=== PATIENT | male | born 1945 | race Caucasian/White ===

== ENCOUNTER 2021-09-21 16:53 | Emergency (ER) | payer BC, MEDICARE ==
[~2021-09-21] VITALS: Ht 180.3 cm; Wt 119.1 kg
[~2021-09-21 16:53] MED LIST: ALPR-624 PO; ASCO500C18 PO; ASPI-845 PO; ATOR40TA PO; BUPR150T8 PO; BUS15T PO; CARV3.12 PO; CLON-527 PO; FLO0.4C PO; FLUO20CA39 PO; FOLATE PO; FURO40TA4 PO; GABA300C PO; GLIM4TAB7 PO; LEVO175T2 PO; LIOT25TA6 PO; LOSA50TA3 PO; METF500T PO; NIA500ERT PO; NITR0.4T SL; OMEP20TA23 PO; POTA-207 PO; QUET-1 PO; RISP1TAB13 PO; SAW160CA3; iohexol 350MG/ML 100ml bottle IV ONE
[2021-09-21 17:27] LABS: BASOPHILS % (AUTO) 0.3 % (0-1); EOSINOPHILS # (AUTO) 0.1 X10'3 (0-0.9); EOSINOPHILS % (AUTO) 1.3 % (0-6); HEMATOCRIT 38.3 % (42.0-52.0); HEMOGLOBIN 13.2 g/dl (14.0-17.9); LYMPHOCYTES # (AUTO) 0.8 X10'3 (1.1-4.8); LYMPHOCYTES % (AUTO) 8.6 % (21-51); MEAN CORPUSCULAR HEMOGLOBIN 30.3 PG (27.0-31.0); MEAN CORPUSCULAR HGB CONC 34.5 g/dL (33.0-36.5); MEAN CORPUSCULAR VOLUME 87.9 FL (78-98); MEAN PLATELET VOLUME 7.7 FL (7.4-10.4); MONOCYTES # (AUTO) 0.7 X10'3 (0-0.9); MONOCYTES % (AUTO) 7.5 % (2-12); NEUTROPHILS # (AUTO) 7.6 X10'3 (1.8-7.7); NEUTROPHILS % (AUTO) 82.3 % (42-75); PLATELET COUNT 287 X10'3 (140-440); RED BLOOD COUNT 4.36 X10'6 (4.70-6.10); RED CELL DISTRIBUTION WIDTH 13.1 % (11.5-14.5); WHITE BLOOD COUNT 9.2 X10'3 (4.5-11.0)
[2021-09-21 17:36] LABS: ALANINE AMINOTRANSFERASE 52 U/L (12-78); ALBUMIN 3.3 G/DL (3.4-5.0); ALBUMIN/GLOBULIN RATIO 0.8 (1.1-1.5); ALKALINE PHOSPHATASE 65 IU/L (46-116); ANION GAP 14 (8-16); ASPARTATE AMINO TRANSFERASE 53 U/L (10-37); BILIRUBIN,TOTAL 0.5 MG/DL (0.1-1.0); BLOOD UREA NITROGEN 30 MG/DL (7-18); BUN/CREATININE RATIO 23.1 (5.4-32.0); CALCIUM 9.4 MG/DL (8.5-10.1); CHLORIDE 102 MMOL/L (99-107); GLUCOSE 134 MG/DL (70-104); POTASSIUM 4.6 MMOL/L (3.5-5.1); SODIUM 140 MMOL/L (135-145); TOTAL CARBON DIOXIDE 24.3 MMOL/L (24-32); TOTAL PROTEIN 7.7 G/DL (6.4-8.2); eGFR 54 ML/MIN
[2021-09-21 17:55] LABS: ETHANOL < 0.010 GM/DL (0.0-0.010)
[2021-09-21 19:07] LABS: CLARITY,URINE CLEAR (Clear); COLOR,URINE YELLOW (Yellow); GLUCOSE, URINE NEGATIVE (Neg); KETONES,URINE 15 mg/dl (Neg); LEUKOCYTE ESTERASE ,URINE NEGATIVE (Neg); NITRITES, URINE NEGATIVE (Neg); OCCULT BLOOD,URINE NEGATIVE (Neg); PROTEIN,URINE NEGATIVE (Neg); UROBILINOGEN,URINE 0.2 E.U/dL (0.2-1.0)
[2021-09-21 19:08] LABS: UA COLLECTION TYPE NON-SPECIFIED
[2021-09-21 19:17] LABS: URINE AMPHETAMINE SCREEN NEGATIVE (Neg); URINE BARBITUATE SCREEN NEGATIVE (Neg); URINE BENZODIAZEPINES SCREEN POSITIVE (Neg); URINE CANNABINOID SCREEN NEGATIVE (Neg); URINE COCAINE SCREEN NEGATIVE (Neg); URINE METHADONE SCREEN NEGATIVE (Neg); URINE OPIATE SCREEN POSITIVE (Neg); URINE PHENCYCLIDINE SCREEN NEGATIVE (Neg)
[2021-09-21] MEDS ORDERED: temazepam 15mg capsule PO PRN (21:00)
[2021-09-21 23:09] VITALS: BP 158/52
[2021-09-21] MEDS ORDERED: glucagon, human recombinant 1mg kit SUBCUT PRN (23:25)
[2021-09-21] MEDS ORDERED: MESSAGE TO PHARMACY PO ONE (23:25)
[2021-09-21] MEDS ORDERED: insulin Lispro (HumaLOG) vial - multi-dose SQ SCH (23:25)
[2021-09-21] MEDS ORDERED: dextrose 50%-water 50ml dispensing syringe IV PRN ×2 (23:25)
[2021-09-21] MEDS ORDERED: DEXTROSE 15 GM of carb/4 tabs (each vial/BOTTLE has 4 tablets) PO PRN ×2 (23:25)
[2021-09-21] MEDS ORDERED: morphine 2 MG/ML inj. syringe IV PRN ×2 (23:45)
[2021-09-21] MEDS ORDERED: ondansetron/PF 4mg/2ml inj IV PRN (23:45)
[2021-09-21] MEDS ORDERED: bisacodyl 10mg suppository rectal RC PRN (23:45)
[2021-09-21] MEDS ORDERED: ondansetron 4mg rapidly disintigrating tab PO PRN (23:45)
[2021-09-21] MEDS ORDERED: HYDROcodone/acetaminophen 10/325mg tab PO PRN (23:45)
[2021-09-21] MEDS ORDERED: acetaminophen 325mg tablet PO PRN ×2 (23:45)
[2021-09-21] MEDS ORDERED: magnesium hydroxide 30ml (MOM) UD suspension PO PRN (23:45)
[2021-09-21] MEDS ORDERED: acetaminophen 650mg rectal suppository RC PRN (23:45)
[2021-09-21] MEDS ORDERED: HYDROmorphone inj. 0.5 MG/0.5 ML DISP.SYRIN IV PRN (23:45)
[2021-09-21] MEDS ORDERED: HYDROcodone/acetaminophen 5mg/325mg tablet PO PRN (23:45)
[2021-09-21] MEDS ORDERED: normal saline 1000ml 1,000 ML IV SCH (23:45)
[2021-09-21] MEDS ORDERED: diphenhydrAMINE 25mg capsule PO PRN (23:45)
[2021-09-21] MEDS ORDERED: diphenhydrAMINE 50 mg/ml inj IV PRN (23:45)
[2021-09-21] MEDS ORDERED: mag hydrox/Alum hydrox/simeth 30ml oral suspension PO PRN (23:45)
[2021-09-21 23:57] LABS: HEMOGLOBIN A1C 6.1 % (4.5-6.2)
[2021-09-22] MEDS ORDERED: docusate sod 100mg capsule PO SCH (08:00)
[2021-09-22] MEDS ORDERED: heparin, porcine 5000 units/ml vial SQ SCH (08:00)
[2021-09-22] MEDS ORDERED: insulin glargine (Lantus) pen - multi-dose SQ SCH (21:00)
== END 2021-09-21 23:11 | disposition left against medical advice (07) ==
LOC: ER 16:54
DX: R55 Syncope and collapse (principal); R20.0 Anesthesia of skin; E11.9 Type 2 diabetes mellitus without complications; G47.33 Obstructive sleep apnea (adult) (pediatric); I10 Essential (primary) hypertension; I25.10 Atherosclerotic heart disease of native coronary artery without angina pectoris; G89.29 Other chronic pain; E78.00 Pure hypercholesterolemia, unspecified; E03.9 Hypothyroidism, unspecified; K21.9 Gastro-esophageal reflux disease without esophagitis; N40.0 Benign prostatic hyperplasia without lower urinary tract symptoms; Z95.5 Presence of coronary angioplasty implant and graft; Z88.8 Allergy status to other drugs, medicaments and biological substances; Z79.899 Other long term (current) drug therapy
CPT/HCPCS: 36415; 70450; 70496; 70498; 71045; 80053; 80305; 80320; 81003; 83036; 83880; 84484; 85025; 99285; J3490; Q9967; J1815

== ENCOUNTER 2023-08-11 12:36 | Emergency (ER) | payer BC ==
[~2023-08-11] VITALS: Ht 180.3 cm; Wt 102.3 kg
[~2023-08-11 12:36] MED LIST changes: +LOSA-416 PO; -LOSA50TA3 PO; -iohexol 350MG/ML 100ml bottle IV ONE
[2023-08-11 13:13] VITALS: TEMP 98.1
[2023-08-11 13:43] LABS: BASOPHILS % (AUTO) 0.2 % (0-1); EOSINOPHILS # (AUTO) 0.1 X10'3 (0-0.9); EOSINOPHILS % (AUTO) 0.6 % (0-6); HEMATOCRIT 36.6 % (42.0-52.0); HEMOGLOBIN 12.5 g/dl (14.0-17.9); LYMPHOCYTES # (AUTO) 0.7 X10'3 (1.1-4.8); LYMPHOCYTES % (AUTO) 6.6 % (21-51); MEAN CORPUSCULAR HEMOGLOBIN 30.8 PG (27.0-31.0); MEAN CORPUSCULAR HGB CONC 34.2 g/dL (33.0-36.5); MEAN CORPUSCULAR VOLUME 90.1 FL (78-98); MEAN PLATELET VOLUME 7.5 FL (7.4-10.4); MONOCYTES # (AUTO) 0.6 X10'3 (0-0.9); MONOCYTES % (AUTO) 5.9 % (2-12); NEUTROPHILS # (AUTO) 8.7 X10'3 (1.8-7.7); NEUTROPHILS % (AUTO) 86.7 % (42-75); PLATELET COUNT 212 X10'3 (140-440); RED BLOOD COUNT 4.06 X10'6 (4.70-6.10); WHITE BLOOD COUNT 10.1 X10'3 (4.5-11.0)
[2023-08-11] MEDS ORDERED: FLUO40CA PO (13:45)
[2023-08-11] MEDS ORDERED: ALPR1TAB7 PO (13:45)
[2023-08-11] MEDS ORDERED: ATOR40TA72 PO (13:45)
[2023-08-11 13:57] LABS: ALBUMIN 2.7 G/DL (3.4-5.0); ANION GAP 10 (8-16); BLOOD UREA NITROGEN 14 MG/DL (7-18); BUN/CREATININE RATIO 17.5 (10.0-20.0); CALCIUM 7.5 MG/DL (8.5-10.1); CHLORIDE 101 MMOL/L (99-107); GLUCOSE 122 MG/DL (70-104); POTASSIUM 3.9 MMOL/L (3.5-5.1); PRO BRAIN NATRIURETIC PEPTIDE 322 PG/ML (0-450); SODIUM 132 MMOL/L (135-145); TOTAL CARBON DIOXIDE 21.4 MMOL/L (24-32); eCRCL 82 ML/MIN; eGFR > 90 ML/MIN
[2023-08-11] MEDS ORDERED: NITR0.4T48 SL (14:04)
[2023-08-11] MEDS ORDERED: FURO20TA4 PO (14:04)
[2023-08-11] MEDS ORDERED: LOSA25TA41 PO (14:04)
[2023-08-11] MEDS: ketorolac tromethamine 15mg/ml inj. IM ONE (14:06)
[2023-08-11] MEDS ORDERED: FLO0.4C PO (14:24)
[2023-08-11] MEDS ORDERED: ZINC PO (14:24)
[2023-08-11] MEDS ORDERED: RISP-32 PO (14:24)
[2023-08-11] MEDS ORDERED: VITAMIN D PO (14:24)
[2023-08-11] MEDS ORDERED: MULT-1085 PO (14:24)
[2023-08-11] MEDS ORDERED: OMEP40CA21 PO (14:24)
[2023-08-11] MEDS ORDERED: DIF150T PO (14:24)
[2023-08-11] MEDS ORDERED: POTA-366 PO (14:24)
[2023-08-11] MEDS ORDERED: MAGNESIUM PO (14:24)
[2023-08-11] MEDS: HYDROmorphone inj. 0.5 MG/0.5 ML DISP.SYRIN IV ONE (15:00)
[2023-08-11] MEDS ORDERED: TRAM50TA2 PO ×2 (15:46→15:47)
[2023-08-11] MEDS ORDERED: OXYC-150 PO ×2 (15:55→15:58)
[2023-08-11 16:08] VITALS: BP 120/53; PULSE 80; RESP 16; O2SAT 98
== END 2023-08-11 16:50 | disposition home or self-care (01) ==
LOC: ER 12:37
DX: S42.392A Other fracture of shaft of left humerus, initial encounter for closed fracture (principal); E11.9 Type 2 diabetes mellitus without complications; F31.9 Bipolar disorder, unspecified; Z98.890 Other specified postprocedural states; Z79.82 Long term (current) use of aspirin; Z79.899 Other long term (current) drug therapy; Z79.84 Long term (current) use of oral hypoglycemic drugs; W18.39XA Other fall on same level, initial encounter; Y93.89 Activity, other specified; Y92.89 Other specified places as the place of occurrence of the external cause; Y99.8 Other external cause status; Z98.61 Coronary angioplasty status
CPT/HCPCS: 36415; 71045; 73020; 80048; 82948; 83880; 84484; 85025; 93005; 96372; 96374; 99285; J1170; J1885; A6446; A6449

== ENCOUNTER 2024-06-16 04:55 | Inpatient (IN) | payer BC, MEDICARE ==
[2024-06-16] VITALS (12 sets, daily range): BP systolic 124–140; BP diastolic 46–64; PULSE 72–86; RESP 16–28; TEMP 97.6–97.7; O2SAT 76–98
[~2024-06-16] VITALS: Ht 180.3 cm; Wt 109.5 kg
[~2024-06-16 04:55] MED LIST changes: -ALPR-624 PO; +ALPR1TAB7 PO; -ATOR40TA PO; +ATOR40TA72 PO; -BUS15T PO; +DIF150T PO; -FLO0.4C PO; +FLUO40CA PO; -FOLATE PO; +FURO20TA4 PO; -FURO40TA4 PO; -GLIM4TAB7 PO; -LOSA-416 PO; +LOSA25TA41 PO; +MAGNESIUM PO; +MULT-1085 PO; -NIA500ERT PO; -NITR0.4T SL; +NITR0.4T48 SL; -OMEP20TA23 PO; +OMEP40CA21 PO; +OXYC-150 PO; -POTA-207 PO; +POTA-366 PO; +RISP-32 PO; -RISP1TAB13 PO; -SAW160CA3; +TAMS-55 PO; +VITAMIN D PO; +ZINC PO
--- NOTE | 2024-06-16 05:06 | ELECTROCARDIOGRAPH REPORT ---
[facility] Test Date: 2024-06-16 Test Time: 05:04:11 Pat Name: ARPAN HUSAIN Department: [facility] Patient ID: [facility]-[id number] Room: [place] [address] Gender: M Client Care Representative: DESTINY : 1945 Requested By: LISHA WOMACK Order Number: [id number] Reading MD: Dr. Saroj Gomez Measurements Intervals [place] Rate: 90 P: 68 LA: 135 QRS: 52 QRSD: 117 T: -13 QT: 389 QTc: 476 Interpretive Statements Atrial-paced complexes Incomplete left bundle branch block Borderline low voltage, extremity leads Minimal ST elevation, lateral leads Electronically Signed On 06-16-2024 19:02:[address] Saroj Gomez Please click the below link to view image of tracing.
--- NOTE | 2024-06-16 05:07 | Physician Documentation ---
History of Present Illness ~ Stated Complaint: SOB Time Seen by MD: 05:06 Primary Medical Doctor: [facility] Source: patient, EMS HPI 78-year-old male, history of IN/CABG, who presents with shortness of breath and respiratory distress Per EMS, the patient arrives from home. He was found to have oxygen saturations were on 70%, with respiratory distress. He was placed on oxygen with partial improvement. The patient tells me he has had a cough for about the last 4 5 days. He has be en having chest pain for the past day or 2. He reports the pain is in his central chest. It does not seem pleuritic. He was not having a productive cough. No definite fevers. No abdominal pain, nausea vomiting or diarrhea. He does not know if his legs are swollen. Does have a history of heart attacks in the past and states this kind of feels similar. He denies any other history of lung problems, asthma or COPD. He does have a tobacco history. Medication Reconciliation Allergies: Coded Allergies: No Known Allergies (Unverified , 09/15/15) Scheduled Ascorbic Acid (Vitamin C), 2 CAP PO DAILY, (Reported) Aspirin* (Aspirin EC*), 2 TAB PO DAILY, (Reported) Atorvastatin Calcium (Atorvastatin Calcium), 1 TAB PO HS, (Reported) Bupropion Hcl SR* (Wellbutrin SR*), 1 TAB PO DAILY, (Reported) Carvedilol (Coreg), 1 TAB PO HS, (Reported) Clonazepam* (Klonopin*), 0.5 MG PO HS, (Reported) Fluconazole* (Diflucan*), 1 TAB PO Q7D, (Reported) Fluoxetine Hcl (Fluoxetine Hcl), 2 CAP PO QAM, (Reported) Fluoxetine Hcl* (Prozac*), 2 CAP PO QAM, (Reported) Furosemide (Furosemide), 10 MG PO QAM, (Reported) Gabapentin (Neurontin), 2 CAP PO DAILY, (Reported) Gabapentin (Neurontin), 3 CAP PO HS, (Reported) Levothyroxine* (Synthroid*), 1 TAB PO DAILY, (Reported) Liothyronine Sodium (Cytomel), 5 MCG PO QAM, (Reported) Losartan Potassium (Losartan Potassium), 1 TAB PO BID, (Reported) Metformin Hcl* (Glucophage*), 2 TAB PO BIDAC, (Reported) Omeprazole (Prilosec), 1 CAP PO DAILY, (Reported) Potassium Chloride (Potassium Chloride), 0.5 TAB PO QAM, (Reported) Quetiapine Fumarate* (Seroquel*), 1.5 TAB PO HS, (Reported) Risperidone (Risperidone), 1 TAB PO HS, (Reported) Tamsulosin Hcl* (Flomax*), 1 TAB PO BID, (Reported) [Magnesium], 400 MG PO DAILY, (Reported) [Vitamin D], 1,000 MG PO BID, (Reported) [Zinc], 100 MG PO DAILY, (Reported) Scheduled PRN Alprazolam (Alprazolam), 2 TAB PO HS PRN for for anxiety/agitation, (Reported) Nitroglycerin (Nitroglycerin), 1-3 TAB SL for pain, (Reported) Oxycodone HCl/Acetaminophen (Percocet 10-325 mg Tablet), 1 TAB PO TID PRN PRN for pain Miscellaneous Medications Multivitamin (Multi Vitamin Daily), 1 EACH PO, (Reported) Past Medical History Past Medical History: Coronary Artery Disease, Hypertension, Diabetes, Bipolar Past Surgical History: angioplasty, orthopedic surgeries Other Past Surgical History: amputation Patient History: (CAD) Coronary arteriosclerosis FATHER, , Age: 83, Cause: Kidney failure (DM Type 2) Diabetes mellitus type 2 FATHER, , Age: 83, Cause: Kidney failure FH: colon cancer MOTHER, , Age: 89, Cause: Old age Drug Use: none Lives In: Home Review of Systems Constitutional: Denies: fever Respiratory: Reports: shortness of breath Cardiovascular: Reports: chest pain Physical Exam Physical Exam General: This is an ill-appearing older man in respiratory distress HEENT: Atraumatic, oropharynx is dry Heart: Tachycardic, appears regular Lungs: Increased work of breathing with tachypnea, respiratory rate around 40, very coarse crackly breath sounds diffusely in the left side, generally clear breath sounds in the right. Bedside ultrasound shows a small pleural effusion on the left, but not a large effusion Abdomen: Soft, nondistended, nontender all quadrants Extremities: Warm and well-perfused. Mild edema to both calves Neuro: Alert and oriented, no focal deficits Psychiatric: Anxious, cooperative with exam Progress Results/Orders Results/Orders Orders - LISHA WOMACK MD Chest,Single View (06/16/24 05:10) Monitor (06/16/24 04:56) Saline Lock (06/16/24 04:56) Oxygen (06/16/24 04:56) Hs Troponin I W Calculations (06/16/24 06:56) Hs Troponin I W Calculations (06/16/24 07:56) Culture Blood (06/16/24 04:56) Urinalysis, Cult If Indicated (06/16/24 04:56) Straight Cath For Urine Sample (06/16/24 04:56) Covid19 Binax Poc Result Entry (06/16/24 04:56) Cta Chest Pe (06/16/24 05:57) Completed Orders - LISHA WOMACK MD Chest,Single View (06/16/24 05:10) Cbc/Diff (06/16/24 04:56) PBNP (06/16/24 04:56) Electrocardiogram (06/16/24 04:56) CMP (06/16/24 04:56) Hs Troponin I W Calculations (06/16/24 04:56) Procalcitonin (06/16/24 04:56) Lacticsepsis (06/16/24 04:56) Influenza Type A&B Rapid Test (06/16/24 04:56) Ceftriaxone 2gm/D5w 50ml Bag (Rocephin 2 (06/16/24 05:30) Medications Received in ER Medications (Trade) Dose Ordered Sig/Raisa Route PRN Reason Start Time Stop Time Status Last Admin Dose Admin Ceftriaxone Sodium/Dextrose 50 ml @ 100 mls/hr ONCE ONCE IV 06/16/24 05:30 06/16/24 05:59 DC 06/16/24 05:43 100 MLS/HR Vital Signs 06/16/24 06/16/24 06/16/24 06/16/24 05:00 05:19 05:20 05:20 Temp 98.5 89.0 Pulse 89 88 Resp 19 21 16 B/P (MAP) 117/51 124/53 (76) Pulse Ox 96 98 O2 Delivery Non-Rebreather O2 Flow Rate 12.0 16 FiO2 N/A 06/16/24 06:48 Pulse 91 Resp 21 B/P (MAP) 120/59 (79) Pulse Ox 95 O2 Flow Rate 6.0 Laboratory Tests Test 06/16/24 05:06 06/16/24 05:12 06/16/24 05:13 White Blood Count 10.9 Red Blood Count 3.46 L Hemoglobin 10.9 L Hematocrit 31.3 L Mean Corpuscular Volume 90.6 Mean Corpuscular Hemoglobin 31.5 H Mean Corpuscular Hemoglobin Concent 34.8 Red Cell Distribution Width 12.7 Platelet Count 195 Mean Platelet Volume 8.0 Neutrophils (%) (Auto) 88.1 H Lymphocytes (%) (Auto) 4.6 L Monocytes (%) (Auto) 6.3 Eosinophils (%) (Auto) 0.3 Basophils (%) (Auto) 0.7 Neutrophils # (Auto) 9.6 H Lymphocytes # (Auto) 0.5 L Monocytes # (Auto) 0.7 Eosinophils # (Auto) 0.0 Basophils # (Auto) 0.1 CBC Comment Sodium Level 141 Potassium Level 4.1 Chloride Level 106 Carbon Dioxide Level 23.5 L Anion Gap 12 Blood Urea Nitrogen 23 H Creatinine 1.03 Estimated GFR/1.73 m2 70 BUN/Creatinine Ratio 22.3 H Glucose Level 180 H Lactic Acid Level 1.6 Calcium Level 8.4 L Total Bilirubin 0.6 Aspartate Amino Transf (AST/SGOT) 17 Alanine Aminotransferase (ALT/SGPT) 19 Alkaline Phosphatase 51 Troponin I High Sensitivity 59 Pro-B-Type Natriuretic Peptide 2694 H Total Protein 5.8 L Albumin 2.6 L Globulin 3.2 Albumin/Globulin Ratio 0.8 L Procalcitonin < 0.05 Chemistry Comments SARS-CoV-2 Antigen (Rapid) Negative Influenza Type A (Rapid) Negative Influenza Type B (Rapid) Negative EKG/XRAY/CT/US/VASC/MRI EKG : Additional Comment I personally interpreted the EKG and this shows: Sinus tachycardic, rate 89, QTC 467, no STEMI, nonspecific T-wave changes in the inferior lateral leads Chest X-Ray : Additional Comments I personally reviewed the x-ray, and it shows: Significant consolidation to the left lung, mild cardiomegaly with surgical changes, mild right-sided pulmonary edema without consolidation Medical Decision Making Additional Information Differential includes pneumonia, PE, dissection, ACS, CHF, sepsis, viral syndrome Assessment The patient presents with respiratory distress and hypoxia. On exam he has course breath sounds in the left. X-ray shows significant consolidation. Bedside ultrasound without large pleural effusion to drain. Blood cultures pending. He was given IV ceftriaxone. Labs then returned without significant leukocytosis. Troponin is not dangerously elevated and EKG without ischemic changes. A CT scan of the chest will be obtained to further evaluate if this is truly just pneumonia or if there is another process or PE. The patient was signed out at shift change to the oncoming ER provider, pending CT PE and admission. Departure Impression: Primary Impression: Acute hypoxic respiratory failure Additional Impression: Community acquired pneumonia Referrals: NO PRIMARY CARE PROVIDER (PCP) Critical Care Note Critical Care Note Critical Care Note The very real possibility of a deterioration of this patient's condition required the highest level of my preparedness for sudden, emergent intervention. I provided critical care services, which included medication orders, frequent reevaluations of the patient's condition and response to treatment, ordering and reviewing test results, and discussing the case with various consultants. Excludes time spent performing separately billable procedures. The critical care time associated with the care of the patient was 45 minutes in the management of hypoxic respiratory failure, sepsis Signature Scribe Signature: giancarlo Attestation: LISHA Bragg MD Jun 16, 2024 05:07
--- NOTE | 2024-06-16 05:37 | RADIOLOGY REPORT ---
EXAM: XR Chest, 1 View CLINICAL INDICATION: CP TECHNIQUE: Frontal view of the chest. COMPARISON: DI CHEST,SINGLE VIEW on DOS: 08/11/23, CHEST,SINGLE VIEW on DOS: 09/21/21 FINDINGS: LUNGS AND PLEURAL SPACES: Patchy airspace disease of the left lung field. HEART: Cardiomegaly with mild congestion. MEDIASTINUM: Unremarkable. Normal mediastinal contour. BONES/JOINTS: Unremarkable. No acute fracture. OTHER FINDINGS: . . . . IMPRESSION: 1. Patchy airspace disease of the left lung field. 2. Cardiomegaly with mild congestion.
[2024-06-16 05:40] LABS: BASOPHILS # (AUTO) 0.1 X10'3 (0-0.2); BASOPHILS % (AUTO) 0.7 % (0-1); EOSINOPHILS % (AUTO) 0.3 % (0-6); HEMATOCRIT 31.3 % (42.0-52.0); HEMOGLOBIN 10.9 g/dl (14.0-17.9); LYMPHOCYTES # (AUTO) 0.5 X10'3 (1.1-4.8); LYMPHOCYTES % (AUTO) 4.6 % (21-51); MEAN CORPUSCULAR HEMOGLOBIN 31.5 PG (27.0-31.0); MEAN CORPUSCULAR HGB CONC 34.8 g/dL (33.0-36.5); MEAN CORPUSCULAR VOLUME 90.6 FL (78-98); MONOCYTES # (AUTO) 0.7 X10'3 (0-0.9); MONOCYTES % (AUTO) 6.3 % (2-12); NEUTROPHILS # (AUTO) 9.6 X10'3 (1.8-7.7); NEUTROPHILS % (AUTO) 88.1 % (42-75); PLATELET COUNT 195 X10'3 (140-440); RED BLOOD COUNT 3.46 X10'6 (4.70-6.10); RED CELL DISTRIBUTION WIDTH 12.7 % (11.5-14.5); WHITE BLOOD COUNT 10.9 X10'3 (4.5-11.0)
[2024-06-16] MEDS: CefTRIAXone 2gm/D5W 50ml BAG 50 ML IV ONE (05:43)
[2024-06-16 05:49] LABS: ALANINE AMINOTRANSFERASE 19 U/L (12-78); ALBUMIN 2.6 G/DL (3.4-5.0); ALBUMIN/GLOBULIN RATIO 0.8 (1.1-1.5); ALKALINE PHOSPHATASE 51 IU/L (46-116); ANION GAP 12 (8-16); ASPARTATE AMINO TRANSFERASE 17 U/L (10-37); BILIRUBIN,TOTAL 0.6 MG/DL (0.1-1.0); BLOOD UREA NITROGEN 23 MG/DL (7-18); BUN/CREATININE RATIO 22.3 (10.0-20.0); CALCIUM 8.4 MG/DL (8.5-10.1); CHLORIDE 106 MMOL/L (99-107); CREATININE 1.03 MG/DL (0.60-1.10); GLUCOSE 180 MG/DL (70-104); POTASSIUM 4.1 MMOL/L (3.5-5.1); SODIUM 141 MMOL/L (135-145); TOTAL CARBON DIOXIDE 23.5 MMOL/L (24-32); TOTAL PROTEIN 5.8 G/DL (6.4-8.2); eCRCL 63 ML/MIN; eGFR 70 ML/MIN
[2024-06-16 05:57] LABS: PRO BRAIN NATRIURETIC PEPTIDE 2694 PG/ML (0-450)
[2024-06-16] MEDS ORDERED: iohexol 350MG/ML 100ml bottle IV ONE (07:14)
[2024-06-16] MEDS ORDERED: FINA5TAB11 PO (07:52)
[2024-06-16 08:33] LABS: ABG BASE EXCESS -2.6 mmol/L (-2.0-3.0); ABG HCO3 21.4 mmol/L (21.0-28.0); ABG OXYGEN SATURATION 94.6 % (94.0-98.0); ABG PCO2 (T) 34.3 mmHg (35.0-48.0); ABG PH (T) 7.413 (7.350-7.450); ABG PO2 (T) 80.2 mmHg (83.0-108.0); ALLEN'S TEST POSITIVE; FCOHb 0.4 % (0.5-1.5); FHHb 5.4 % (0.0-5.0); FLOW 5 L/min; FMetHb 0.3 % (0.0-1.5); FO2Hb 93.9 % (94.0-98.0); MODE MASK - SIMPLE; TOTAL HEMOGLOBIN 11.3 G/dl (13.5-17.5)
--- NOTE | 2024-06-16 08:47 | RADIOLOGY REPORT ---
CTA Chest with intravenous contrast INDICATION: Shortness of breath, hypoxia, pneumonia versus PE COMPARISON: None TECHNIQUE: Multidetector spiral CTA of the chest was performed of the chest with 100 cc of intravenou s contrast. PULMONARY ANGIOGRAPHY PROTOCOL was utilized using a bolus-tracking technique centered on the main pulmonary artery. Coronal and sagittal multiplanar and MIP reformats were performed. Radiation Dose : 1. Chest: CTDI volume is 24.6 mGy. Dose-length product is 784.5 mGy*cm The dose indicators for CT are the volume Computed Tomography (CT) Dose Index (CTDIvol) and the Dose Length Product (DLP), and are measured in units of mGy and mGy-cm, respectively. These indicators are not patient dose, but values generated from the CT scanner acquisition factors. The report includes radiation exposure data for exposures received during this examination. FINDINGS: Pulmonary artery: No central or lobar pulmonary embolism. Segmental branches are not well evaluated due to suboptimal enhancement. Lower neck: Normal thyroid. Lungs: Diffuse ground-glass opacification of the left upper and lower lobes. Emphysema. Central airways: Patent. Pleura: No pneumothorax. Left pleural effusion. Trace right pleural effusion Heart/Vascular Structures: The heart is enlarged. No pericardial effusion. Thoracic aorta is normal i n caliber. No aneurysm or dissection. Lymph Nodes: 2.2 cm right paratracheal lymph node. 1.1 cm left paratracheal lymph node. Enlarged sub carinal lymph node measuring 2.0 cm. Esophagus: Hiatal hernia Musculoskeletal: Status post median sternotomy. Bone anchors in the left humeral head. Multilevel tho racic spondylosis. Body wall: Unremarkable. Upper abdomen: Cholecystectomy. IMPRESSION: 1. No central pulmonary embolism. The other pulmonary branches are not evaluated due to suboptimal en hancement. 2. Left upper and lower lobe pneumonia. 3. Emphysema. 4. Mediastinal lymphadenopathy.
[2024-06-16] MEDS: methylPREDNISolone sod succ 125mg/2ml vial IV ONE (09:27)
[2024-06-16] MEDS: azithromycin/NS 500mg/250ml 250 ML IV ONE (09:28)
[2024-06-16] MEDS ORDERED: potassium Cl 20 mEq SR tablet PO PRN ×2 (11:50)
[2024-06-16] MEDS ORDERED: potassium Cl 40MEQ/1/2NS 520ml 520 ML IV PRN (11:50)
[2024-06-16] MEDS ORDERED: magnesium sulf-water 2g/50mL 50 ML IV PRN (11:50)
[2024-06-16] MEDS ORDERED: magnesium Cl slow-release 64mg tablet PO PRN (11:50)
[2024-06-16] MEDS ORDERED: morphine 2 MG/ML inj. syringe IV PRN (11:50)
[2024-06-16] MEDS ORDERED: magnesium sulf-water 4G/100mL 100 ML IV PRN (11:50)
[2024-06-16] MEDS ORDERED: acetaminophen 325mg tablet PO PRN (11:50)
[2024-06-16] MEDS: albuterol 2.5 MG/3 ML nebule NEB SCH (12:00)
[2024-06-16] MEDS ORDERED: finasteride 5mg tablet PO SCH (17:31)
[2024-06-16 17:32] LABS: HEMOGLOBIN A1C 5.5 % (4.5-6.2)
[2024-06-16] MEDS: magnesium oxide 400mg tablet PO SCH (17:46)
[2024-06-16] MEDS: buPROPion SR 150mg tablet PO SCH (17:46)
--- NOTE | 2024-06-16 18:13 | CARDIOLOGY REPORT ---
APPROVED REPORT EXAM: Comprehensive 2D, Doppler, and color-flow Echocardiogram. Patient Location: 3012 A Blood Pressure: 140/46 mmHg Heart Rate: 80 bpm Rhythm: SINUS Indications SHORTNESS OF BREATH ELEVATED PROBNP (2694) VA X2, CABG X3 2000 HYPERTENSION DIABETES MELLITUS Academic Coach: Alesia Nieto MD Previous echo: none available (after hours) 2D Dimensions RVDd 3.7 cm LA Diam5.4 cm IVSd 1.7 (0.7-1.1cm) LVDd 4.4 cm PWd 1.7 (0.7-1.1cm) IVSs 1.8 (0.8-1.2cm) LVDs 3.1 (2.5-4.0cm) PWs 1.9 (0.8-1.2cm) LVOT Diameter 2.28 (1.8-2.4cm) LVEF(%) 57.0 (>50%) Ao Asc Diam.3.97 cmFS (%) 29.7 % SV 48.8 ml CO 3.9 L/min M-Mode Dimensions Left Atrium(MM) 5.22 (2.5-4.0cm) IVSd 1.87 (0.7-1.1cm) LVDd 4.30 (4.0-5.6cm) Aortic Root 4.09 (2.2-3.7cm) PWd 1.83 (0.7-1.1cm) Aortic Cusp Exc 1.13 (1.5-2.0cm) IVSs 2.26 cm MV EPSS 1.0 (<0.5cm) LVDs 2.96 (2.0-3.8cm) FS (%) 31 % PWs 2.04 cm ESV(Teich) 33.8 ml LVEF(%) 59 (>50%) Biplane 2D LA Volumes LA ESV Index 33.06 mL/m2 Aortic Valve AoV Peak Cristobal. 389.1 cm/s AoV VTI 88.2 cm AO Peak GR. 60.6 mmHg AO Mean GR. 33 mmHg LVOT VTI 27.59 cm LVOT Peak Cristobal. 114.7 cm/s EMMETT(VTI)/BSA 1.28 cm2/m2 EMMETT (VTI) 1.28 cm2 AI P 1/2 Time 228 ms Mitral Valve MV E Velocity 87.6 cm/s MV Peak Gr. 4 mmHg MV DECEL TIME 196 ms MV A Velocity 68.2 cm/s MV PHT 52 ms E/A Ratio 1.3 MVA (PHT) 4.23 cm2 MV VMax97.8 cm/s TDI Medial E' P. V 6.64 cm/s E/Medial E' 13.2 Tricuspid Valve TR P. Velocity 250 cm/s RAP ESTIMATE 10 mmHg TR Peak Gr. 25 mmHg RVSP 35 mmHg Pulmonary Vein S1 Velocity 86.6 cm/s D2 Velocity 67.7 cm/s PVa Abmixxwa29.0 cm/s PVa Mukjugkl02 msec LEFT VENTRICLE Normal LV size and function. Mild concentric hypertrophy. LVEF is 55-60%. RIGHT VENTRICLE RV is mildly dilated in size with normal function. RVSP is estimated at 35 mmHg. ATRIA Left atrium is mildly dilated. AORTIC VALVE Probably trileaflet AV is difficult to visualize, but appears moderately sclerotic and calcified with moderate stenosis. EMMETT is measured at 1.28 cmsq. Peak / mean gradients of 61 / 33 mmHG. Peak velocit y is measured at 3.89 m/sec. Moderate to evere insufficiency. MITRAL VALVE Mild MV annular calcification without stenosis. Mild regurgitation. TRICUSPID VALVE TV appears structurally normal with trace regurgitation. PULMONIC VALVE Normal PV without stenosis, physiologic insufficiency. GREAT VESSELS Aortic root is dilated. Ascending aorta is dilated. PERICARDIUM Normal pericardium. No effusion. Other Information Study Quality: Adequate
[2024-06-16] MEDS: ALPRAZolam 0.25mg tablet PO ONE (20:25)
[2024-06-16] MEDS: atorvastatin 20mg tablet PO SCH (20:25)
[2024-06-16] MEDS: quetiapine 100mg tablet PO SCH (20:25)
[2024-06-16] MEDS: gabapentin 300mg capsule PO SCH (20:25)
[2024-06-16] MEDS: tamsulosin 0.4mg capsule PO SCH (20:26)
[2024-06-16] MEDS: heparin, porcine 5000 units/ml vial SQ SCH (20:26)
[2024-06-16] MEDS: methylPREDNISolone sod succ/PF 40mg inj. IV SCH (20:27)
[2024-06-16] MEDS: risperiDONE 0.5mg tablet PO SCH (20:49)
--- NOTE | 2024-06-16 21:20 | HISTORY AND PHYSICAL ---
History & Physical Providers to CC ~ History of Present Illness Reason for Admit\\Complaint: Shortness of breath History of Present Illness 78-year-old male, history of OH/CABG, who presents with shortness of breath and respiratory distress. Per EMS, the patient arrives from home. He was found to have oxygen saturations were on 70%, with respiratory distress. He was placed on oxygen with partial improvement. As per ER provider's note" The patient tells me he has had a cough for about the last 4 5 days. He has been having chest pain for the past day or 2. He reports the pain is in his central chest. It does not seem pleuritic. He was not having a productive cough. No definite fevers. No abdominal pain, nausea vomiting or diarrhea. He does not know if his legs are swollen." . When I evaluated the patient patient denied any chest pain to me he was on 7 L oxygen saturating 96%. On exam he has very coarse breath sounds all over his lungs. X-ray showed significant consolidation. CT chest done today which showed left upper and lower lobe pneumonia, emphysema no central pulmonary embolism. Other pulmonary branches are not evaluated due to suboptimal enhancement. Mediastinal lymphadenopathy. Hospitalist services contacted for admission and further management. Allergies: Coded Allergies: No Known Allergies (Unverified , 09/15/15) Home Medications Home Medications Active Reported PROSCAR tablet (Finasteride) 5 Mg Tablet 5 Mg PO DAILY Diflucan* (Fluconazole) 150 Mg Tablet 1 Tab PO Q7D [Magnesium] 400 Mg PO DAILY [Zinc] 100 Mg PO DAILY [Vitamin D] 1,000 Mg PO BID Multi Vitamin Daily (Multivitamin) 1 Each Tablet 1 Each PO Flomax* (Tamsulosin HCl) 0.4 Mg Cap.sr.24h 1 Tab PO BID Risperidone 2 Mg Tablet 0.5 Tab PO HS Prilosec (Omeprazole) 40 Mg Capsule 1 Cap PO DAILY Nitroglycerin 0.4 Mg Tab.subl 1-3 Tab SL PRN Fluoxetine Hcl 40 Mg Capsule 2 Cap PO QAM Atorvastatin Calcium 40 Mg Tablet 1 Tab PO HS Alprazolam 1 Mg Tablet 2 Tab PO HS PRN Vitamin C (Ascorbic Acid) 500 Mg Capsule.er 2 Cap PO DAILY Aspirin EC* (Aspirin) 325 Mg Tablet.dr 2 Tab PO DAILY Seroquel* (Quetiapine Fumarate) 100 Mg Tablet 2 Tab PO HS Neurontin (Gabapentin) 300 Mg Capsule 3 Cap PO HS Neurontin (Gabapentin) 300 Mg Capsule 2 Cap PO DAILY Wellbutrin SR* (Bupropion HCl) 150 Mg Tablet.sa 1 Tab PO DAILY LOOK-ALIKE SOUND-ALIKE DRUG buSPIRone & buPROPion Prozac* (Fluoxetine HCl) 20 Mg Capsule 2 Cap PO QAM Synthroid* (Levothyroxine Sodium) 175 Mcg Tab 1 Tab PO DAILY Cytomel (Liothyronine Sodium) 25 Mcg Tablet 5 Mcg PO QAM Past Medical History Past Medical History Coronary Artery Disease, Hypertension, Diabetes, Bipolar Past Surgical History Surgical History Comment angioplasty, orthopedic surgeries Family History Family History: (CAD) Coronary arteriosclerosis FATHER, , Age: 83, Cause: Kidney failure (DM Type 2) Diabetes mellitus type 2 FATHER, , Age: 83, Cause: Kidney failure FH: colon cancer MOTHER, , Age: 89, Cause: Old age Past Social History Social History Comment Patient lives by himself. Sedentary lifestyle does not walk much but able to ambulate with a walker ROS ROS Review of system as mentioned above in HPI rest of the review of system unremarkable Exam Vitals: Vital Signs Date Time Temp Pulse Resp B/P (MAP) Pulse Ox O2 Delivery O2 Flow Rate FiO2 06/16/24 19:32 76 26 Simple Mask 10.0 06/16/24 19:25 76 99 06/16/24 15:24 97.6 140/46 (77) General: General-patient not in any acute distress, alert awake oriented, chronically ill-appearing HEENT-atraumatic normocephalic, neck supple without elevated JVD, no thyromegaly or carotid bruit. No lymphadenopathy bilaterally. Eyes-no icterus or pallor seen in eyes Chest-coarse breath sounds present to auscultation bilaterally, breathing nonlabored no tachypnea, no wheezing, crackles present over lung base Heart-S1-S2 normal, regular heart rate , systolic murmur present . Abdomen bowel sounds positive on auscultation, soft nondistended nontender no guarding, no rigidity Skin no active skin rash, stage I pressure ulcer present over sacral area. Neurology-grossly intact, nonfocal alert awake oriented Extremity- no pedal edema able to move all 4 extremities Psychiatry - patient is not confused or agitated cooperated during physical examination Diagnostic Data Last Recorded Lab Results: 06/16/24 0506 06/16/24 0506 Advance Care Planning Advanced Care plannin - 30 Minutes Additional Plan 78-year-old male, history of OH/CABG, who presents with shortness of breath and respiratory distress. Patient is admitted for left upper and lower lobe pneumonia, emphysema . Patient is started on IV antibiotics steroids and nebulizer treatment. ABG ordered . echocardiogram ordered elevated BNP . Patient's home medication reconciliation done for patient's cardiac condition and for bipolar disorder. Code status discussed with the patient patient wishes to stay full code. Patient's current condition is guarded we will continue to follow patient in a.m.. Date of Service: Jun 16, 2024 Billing Provider: GENO BENAVIDES MD Common Visit Codes: [id number] INP/OBS CARE (HIGH) Secondary Visit Codes: [id number] CARE PLAN 30 MINUTES GENO BENAVIDES MD Jun 16, 2024 21:20
[2024-06-17] VITALS (21 sets, daily range): BP systolic 122–170; BP diastolic 48–62; PULSE 73–108; RESP 14–35; TEMP 97.5–98.8; O2SAT 89–96
[2024-06-17 07:07] LABS: ALANINE AMINOTRANSFERASE 21 U/L (12-78); ALBUMIN 2.5 G/DL (3.4-5.0); ALBUMIN/GLOBULIN RATIO 0.7 (1.1-1.5); ALKALINE PHOSPHATASE 48 IU/L (46-116); ANION GAP 6 (8-16); ASPARTATE AMINO TRANSFERASE 16 U/L (10-37); BILIRUBIN,TOTAL 0.3 MG/DL (0.1-1.0); BLOOD UREA NITROGEN 26 MG/DL (7-18); BUN/CREATININE RATIO 27.1 (10.0-20.0); CALCIUM 8.7 MG/DL (8.5-10.1); CHLORIDE 105 MMOL/L (99-107); CREATININE 0.96 MG/DL (0.60-1.10); GLUCOSE 214 MG/DL (70-104); POTASSIUM 4.5 MMOL/L (3.5-5.1); SODIUM 138 MMOL/L (135-145); TOTAL CARBON DIOXIDE 27.1 MMOL/L (24-32); eCRCL 68 ML/MIN; eGFR 76 ML/MIN
[2024-06-17 07:10] LABS: BASOPHILS % (AUTO) 0.1 % (0-1); EOSINOPHILS % (AUTO) 0 % (0-6); HEMATOCRIT 30.9 % (42.0-52.0); HEMOGLOBIN 10.6 g/dl (14.0-17.9); LYMPHOCYTES # (AUTO) 0.5 X10'3 (1.1-4.8); LYMPHOCYTES % (AUTO) 4.3 % (21-51); MEAN CORPUSCULAR HEMOGLOBIN 31.2 PG (27.0-31.0); MEAN CORPUSCULAR HGB CONC 34.5 g/dL (33.0-36.5); MEAN CORPUSCULAR VOLUME 90.4 FL (78-98); MEAN PLATELET VOLUME 8.2 FL (7.4-10.4); MONOCYTES # (AUTO) 0.6 X10'3 (0-0.9); MONOCYTES % (AUTO) 5.7 % (2-12); NEUTROPHILS % (AUTO) 89.9 % (42-75); PLATELET COUNT 227 X10'3 (140-440); RED BLOOD COUNT 3.41 X10'6 (4.70-6.10); RED CELL DISTRIBUTION WIDTH 12.6 % (11.5-14.5); WHITE BLOOD COUNT 11.2 X10'3 (4.5-11.0)
[2024-06-17] MEDS ORDERED: FLUOXETINE HCL PO SCH (08:00)
[2024-06-17] MEDS: aspirin 81mg, enteric-coated 1 TAB TABLET.DR PO SCH (08:22)
[2024-06-17] MEDS: gabapentin 300mg capsule PO SCH (08:22)
[2024-06-17] MEDS: levoTHYROXINE 175mcg tablet PO SCH (08:23)
[2024-06-17] MEDS: FLUoxetine 20mg capsule PO SCH (08:23)
[2024-06-17] MEDS: finasteride 5mg tablet PO SCH (08:24)
[2024-06-17] MEDS: pantoprazole 40mg Tablet.DR PO SCH (08:24)
[2024-06-17] MEDS: azithromycin/NS 500mg/250ml 250 ML IV SCH (09:02)
[2024-06-17] MEDS: CefTRIAXone 2gm/D5W 50ml BAG 50 ML IV SCH (09:02)
[2024-06-17] MEDS: ALPRAZolam 0.5mg tablet PO ONE (10:42)
--- NOTE | 2024-06-17 20:43 | PROGRESS NOTE ---
Daily Progress Note Providers to CC ~ Antibiotic Timeout Antibiotic Ordered?: Yes Subjective Patient was seen in presence of his son he is still requiring 6-7 L of oxygen. No other new concerns Objective Vital Signs Date Time Temp Pulse Resp B/P (MAP) Pulse Ox O2 Delivery O2 Flow Rate FiO2 06/17/24 19:36 12.0 06/17/24 19:34 88 20 High Flow [place] 06/17/24 19:26 91 06/17/24 19:26 58 06/17/24 18:00 98.0 170/62 (98) Result Diagram: 06/17/24 0626 06/17/24 06 General-patient not in any acute distress, alert awake oriented, chronically ill-appearing HEENT-atraumatic normocephalic, neck supple without elevated JVD, no thyromegaly or carotid bruit. No lymphadenopathy bilaterally. Eyes-no icterus or pallor seen in eyes Chest-coarse breath sounds present to auscultation bilaterally, mildly improved since yesterday. breathing nonlabored no tachypnea, no wheezing, crackles present over lung base Heart-S1-S2 normal, regular heart rate , systolic murmur present . Abdomen bowel sounds positive on auscultation, soft nondistended nontender no guarding, no rigidity Skin no active skin rash, stage I pressure ulcer present over sacral area. Neurology-grossly intact, nonfocal alert awake oriented Extremity- no pedal edema able to move all 4 extremities Psychiatry - patient is not confused or agitated cooperated during physical examination Problem\Assessment\Plan # 78-year-old male, history of OR/CABG, who presents with shortness of breath and respiratory distress. Patient is admitted for left upper and lower lobe pneumonia, emphysema . continue on on IV antibiotics steroids and nebulizer treatment. ABG reviewed . We will requiring 6-7 L of oxygen . # Patient's home medication reconciliation done for patient's cardiac condition,history of OR/CABG, has moderate aortic stenosis . echocardiogram ordered elevated BNP # bipolar disorder- medication reconciliation done for patient's home medication. # Code status discussed with the patient patient wishes to stay full code. Patient's current condition is guarded we will continue to follow patient in a.m.. Date of Service: Jun 17, 2024 Billing Provider: GENO BENAVIDES MD Common Visit Codes: [id number] INP/OBS CARE(HIGH) GENO BENAVIDES MD Jun 17, 2024 20:43
[2024-06-17] MEDS: ALPRAZolam 0.25mg tablet PO PRN (20:46)
[2024-06-17] MEDS: hydrALAZINE 20mg/ml inj. IV PRN (21:59)
[2024-06-17] MEDS: ALPRAZolam 0.5mg tablet PO PRN (23:20)
[2024-06-18] VITALS (23 sets, daily range): BP systolic 135–156; BP diastolic 43–64; PULSE 76–105; RESP 15–32; TEMP 97–99.1; O2SAT 88–97
[2024-06-18 05:52] LABS: BASOPHILS % (AUTO) 0.1 % (0-1); EOSINOPHILS % (AUTO) 0 % (0-6); HEMATOCRIT 33.4 % (42.0-52.0); HEMOGLOBIN 11.3 g/dl (14.0-17.9); LYMPHOCYTES # (AUTO) 0.4 X10'3 (1.1-4.8); LYMPHOCYTES % (AUTO) 3.5 % (21-51); MEAN CORPUSCULAR HEMOGLOBIN 30.8 PG (27.0-31.0); MEAN CORPUSCULAR VOLUME 90.7 FL (78-98); MEAN PLATELET VOLUME 7.7 FL (7.4-10.4); MONOCYTES # (AUTO) 0.7 X10'3 (0-0.9); MONOCYTES % (AUTO) 5.7 % (2-12); NEUTROPHILS # (AUTO) 11.6 X10'3 (1.8-7.7); NEUTROPHILS % (AUTO) 90.7 % (42-75); PLATELET COUNT 276 X10'3 (140-440); RED BLOOD COUNT 3.68 X10'6 (4.70-6.10); RED CELL DISTRIBUTION WIDTH 12.6 % (11.5-14.5); WHITE BLOOD COUNT 12.8 X10'3 (4.5-11.0)
[2024-06-18 06:08] LABS: ALANINE AMINOTRANSFERASE 40 U/L (12-78); ALBUMIN 2.4 G/DL (3.4-5.0); ALBUMIN/GLOBULIN RATIO 0.7 (1.1-1.5); ALKALINE PHOSPHATASE 50 IU/L (46-116); ANION GAP 6 (8-16); ASPARTATE AMINO TRANSFERASE 27 U/L (10-37); BILIRUBIN,TOTAL 0.4 MG/DL (0.1-1.0); BLOOD UREA NITROGEN 26 MG/DL (7-18); BUN/CREATININE RATIO 29.5 (10.0-20.0); CALCIUM 8.8 MG/DL (8.5-10.1); CHLORIDE 104 MMOL/L (99-107); CREATININE 0.88 MG/DL (0.60-1.10); GLUCOSE 206 MG/DL (70-104); POTASSIUM 4.7 MMOL/L (3.5-5.1); SODIUM 138 MMOL/L (135-145); TOTAL CARBON DIOXIDE 27.9 MMOL/L (24-32); eCRCL 74 ML/MIN; eGFR 84 ML/MIN
[2024-06-18 10:54] LABS: ABG BASE EXCESS 3.2 mmol/L (-2.0-3.0); ABG OXYGEN SATURATION 86.5 % (94.0-98.0); ABG PH (T) 7.512 (7.350-7.450); ABG PO2 (T) 48.2 mmHg (83.0-108.0); ALLEN'S TEST POSITIVE; FCOHb 1.3 % (0.5-1.5); FHHb 13.3 % (0.0-5.0); FMetHb 0.3 % (0.0-1.5); FO2Hb 85.1 % (94.0-98.0); MODE HIGH FLOW; PATIENT TEMPERATURE 36.6; TOTAL HEMOGLOBIN 12.4 G/dl (13.5-17.5)
[2024-06-18] MEDS: gabapentin 300mg capsule PO ONE (20:49)
[2024-06-18] MEDS: ALPRAZolam 0.5mg tablet PO SCH (20:49)
[2024-06-18] MEDS: methylPREDNISolone sod succ/PF 40mg inj. IV SCH (20:52)
--- NOTE | 2024-06-18 21:45 | PROGRESS NOTE ---
Daily Progress Note Providers to CC ~ Antibiotic Timeout Antibiotic Ordered?: Yes Subjective Patient was seen in presence of his son. Patient is requiring high-flow oxygen 15 L when I saw him ABG ordered and discussed with the respiratory therapist. Patient feels that he needs his alprazolam to sleep and despite of telling that his many psych medication can sedate him he has persistent that he needs his psychiatric medications. He follows with Dr. Cabrera Psychiatry specialist in outpatient setting and as per son he gets in [place] if he do not get his medication. Objective Vital Signs Date Time Temp Pulse Resp B/P (MAP) Pulse Ox O2 Delivery O2 Flow Rate FiO2 06/18/24 19:22 101 29 94 15.0 06/18/24 19:19 High Flow [place] 06/18/24 19:11 71 06/18/24 15:00 97.8 156/64 (94) Result Diagram: 06/18/24 0505 06/18/24 0505 General-patient not in any acute distress, alert awake oriented, chronically ill-appearing HEENT-atraumatic normocephalic, neck supple without elevated JVD, no thyromegaly or carotid bruit. No lymphadenopathy bilaterally. Eyes-no icterus or pallor seen in eyes Chest-coarse breath sounds present to auscultation bilaterally, mildly improved since yesterday. breathing nonlabored no tachypnea, no wheezing, crackles present over lung base Heart-S1-S2 normal, regular heart rate , systolic murmur present . Abdomen bowel sounds positive on auscultation, soft nondistended nontender no guarding, no rigidity Skin no active skin rash, stage I pressure ulcer present over sacral area. Neurology-grossly intact, nonfocal alert awake oriented Extremity- no pedal edema able to move all 4 extremities Psychiatry - patient is not confused or agitated cooperated during physical examination Problem\Assessment\Plan # 78-year-old male, history of VA/CABG, who presents with shortness of breath and respiratory distress. Patient is admitted for left upper and lower lobe pneumonia, emphysema . continue on on IV antibiotics steroids and nebulizer treatment. ABG reviewed . We will requiring 6-7 L of oxygen . # Patient's home medication reconciliation done for patient's cardiac condition,history of VA/CABG, has moderate aortic stenosis . echocardiogram ordered elevated BNP # bipolar disorder- medication reconciliation done for patient's home medication. # Code status discussed with the patient patient wishes to stay full code. Patient was seen in presence of his son. Patient is requiring high-flow oxygen 15 L when I saw him ABG ordered and discussed with the respiratory therapist. Patient feels that he needs his alprazolam to sleep and despite of telling that his many psych medication can sedate him he has persistent that he needs his psychiatric medications. He follows with Dr. Cabrera Psychiatry specialist in outpatient setting and as per son he gets in [place] if he do not get his medication. Patient's current condition is guarded we will continue to follow patient in a.m.. Date of Service: Jun 18, 2024 Billing Provider: GENO BENAVIDES MD Common Visit Codes: [id number] INP/OBS CARE(HIGH) GENO BENAVIDES MD Jun 18, 2024 21:45
[2024-06-19] VITALS (23 sets, daily range): BP systolic 103–150; BP diastolic 51–72; PULSE 77–98; RESP 19–43; TEMP 97.3–97.8; O2SAT 81–98
[2024-06-19 06:28] LABS: BASOPHILS % (AUTO) 0.1 % (0-1); EOSINOPHILS % (AUTO) 0 % (0-6); HEMATOCRIT 33.6 % (42.0-52.0); HEMOGLOBIN 11.3 g/dl (14.0-17.9); LYMPHOCYTES # (AUTO) 0.5 X10'3 (1.1-4.8); LYMPHOCYTES % (AUTO) 4.9 % (21-51); MEAN CORPUSCULAR HEMOGLOBIN 30.5 PG (27.0-31.0); MEAN CORPUSCULAR HGB CONC 33.7 g/dL (33.0-36.5); MEAN CORPUSCULAR VOLUME 90.6 FL (78-98); MEAN PLATELET VOLUME 7.6 FL (7.4-10.4); MONOCYTES # (AUTO) 0.7 X10'3 (0-0.9); MONOCYTES % (AUTO) 5.9 % (2-12); NEUTROPHILS # (AUTO) 9.9 X10'3 (1.8-7.7); NEUTROPHILS % (AUTO) 89.1 % (42-75); PLATELET COUNT 283 X10'3 (140-440); RED BLOOD COUNT 3.71 X10'6 (4.70-6.10); RED CELL DISTRIBUTION WIDTH 12.7 % (11.5-14.5); WHITE BLOOD COUNT 11.2 X10'3 (4.5-11.0)
[2024-06-19 06:51] LABS: ALANINE AMINOTRANSFERASE 37 U/L (12-78); ALBUMIN 2.5 G/DL (3.4-5.0); ALBUMIN/GLOBULIN RATIO 0.7 (1.1-1.5); ALKALINE PHOSPHATASE 55 IU/L (46-116); ANION GAP 6 (8-16); ASPARTATE AMINO TRANSFERASE 21 U/L (10-37); BILIRUBIN,TOTAL 0.6 MG/DL (0.1-1.0); BLOOD UREA NITROGEN 23 MG/DL (7-18); BUN/CREATININE RATIO 25.6 (10.0-20.0); CALCIUM 8.8 MG/DL (8.5-10.1); CHLORIDE 103 MMOL/L (99-107); GLUCOSE 232 MG/DL (70-104); POTASSIUM 4.7 MMOL/L (3.5-5.1); SODIUM 138 MMOL/L (135-145); THYROID STIMULATING HORMONE 0.38 ulU/ml (0.34-4.50); TOTAL CARBON DIOXIDE 28.6 MMOL/L (24-32); TOTAL PROTEIN 6.2 G/DL (6.4-8.2); eCRCL 72 ML/MIN; eGFR 82 ML/MIN
[2024-06-19] MEDS: gabapentin 300mg capsule PO SCH ×2 (07:28→20:20)
[2024-06-19] MEDS: acetaZOLAMIDE IV 500mg inj IV ONE (09:34)
--- NOTE | 2024-06-19 16:20 | PROGRESS NOTE ---
Daily Progress Note Providers to CC ~ Antibiotic Timeout Antibiotic Ordered?: Yes If Yes, Indications: PNA Subjective No acute events overnight. Patient examined at bedside. No new complaints. Patient denies chest pain, sob, palpitations, abdominal pain, n/v/d. Oxygen demand increasing, on 12L HF salter. ABG indicates respiratory alkalosis. TTE shows EMMETT 1.28cmsq, moderate to severe aortic insufficiency, LVEF 55-60%, RVSP 35mmHg. Case discussed with his sales office coordinator Dr. Nieto, recommends medical management. Continued on abx, steroid discontinued. Objective Vital Signs Date Time Temp Pulse Resp B/P (MAP) Pulse Ox O2 Delivery O2 Flow Rate FiO2 06/19/24 15:46 86 20 High Flow [place] 12.0 06/19/24 15:45 90 67 06/19/24 15:00 97.5 135/51 (79) Result Diagram: 06/19/24 0544 06/19/24 0544 Physical Exam General: Generalized weakness, A&Ox2, NAD HEENT: Normocephalic, PERRLA Neck: Supple, trachea midline, no JVD Chest: Clear to auscultation bilaterally Cardiovascular: grade 3/5 murmur 2nd intercostal space GI: Soft and nontender Extremities: No cyanosis/clubbing/or edema CORRESPONDENCE DICTATOR: No focal deficits Musculoskeletal: No paraspinal muscle tenderness, no muscle spasm Skin: Warm and intact Problem\Assessment\Plan 78-year-old male with history of CABG who presents with shortness of breath and respiratory distress # Community-acquired pneumonia- POA # Acute hypoxic respiratory failure- POA # Respiratory alkalosis-POA -06/19: continue ceftriaxone, zithromax; discontinue steroid; acetazolamide started # Acute decompensated diastolic heart failure- POA # Aortic regurgitation, moderate to severe # Hx CABG -06/19: TTE shows EMMETT 1.28cmsq, moderate to severe aortic insufficiency, LVEF 55- 60%, RVSP 35mmHg; pBNP 2690; continue home aspirin, statin -GDMT as tolerated -case discussed with his sales office coordinator Dr. Nieto, recommends medical management # Bipolar disorder # Hypothyroidism -TSH wnl, follow T4, continue home med Code status: Full Code DVT/VTE Prophylaxis: heparin Date of Service: June 19, 2024 Billing Provider: IRIS,PAOLA S GALLERY MANAGER Common Visit Codes: [id number] INP/OBS CARE(HIGH) PAOLA SIMMONS GALLERY MANAGER June 19, 2024 16:20
[2024-06-19] MEDS: EMPAGLIFLOZIN 10 MG TABLET PO ONE (16:51)
[2024-06-19] MEDS: furosemide 40mg/4ml inj IV ONE (19:45)
[2024-06-19] MEDS ORDERED: heparin, porcine 5000 units/ml vial SQ SCH (20:00)
[2024-06-19] MEDS: carVEDilol 3.125mg tablet PO SCH (20:21)
[2024-06-20] VITALS (25 sets, daily range): BP systolic 105–144; BP diastolic 38–56; PULSE 8–90; RESP 17–31; TEMP 97.2–97.8; O2SAT 82–95
[2024-06-20 07:32] LABS: BASOPHILS % (AUTO) 0.1 % (0-1); EOSINOPHILS # (AUTO) 0.1 X10'3 (0-0.9); EOSINOPHILS % (AUTO) 1.1 % (0-6); HEMATOCRIT 36.4 % (42.0-52.0); HEMOGLOBIN 12.3 g/dl (14.0-17.9); LYMPHOCYTES # (AUTO) 0.8 X10'3 (1.1-4.8); MEAN CORPUSCULAR HEMOGLOBIN 30.7 PG (27.0-31.0); MEAN CORPUSCULAR HGB CONC 33.7 g/dL (33.0-36.5); MEAN PLATELET VOLUME 7.6 FL (7.4-10.4); MONOCYTES % (AUTO) 7.4 % (2-12); NEUTROPHILS # (AUTO) 11.3 X10'3 (1.8-7.7); NEUTROPHILS % (AUTO) 85.4 % (42-75); PLATELET COUNT 306 X10'3 (140-440); RED CELL DISTRIBUTION WIDTH 12.5 % (11.5-14.5); WHITE BLOOD COUNT 13.2 X10'3 (4.5-11.0)
[2024-06-20] MEDS ORDERED: insulin glargine (Lantus) VIAL- multi-dose SQ ONE (07:35)
[2024-06-20 08:20] LABS: CHOL/HDL RATIO 5.3 (0.00-4.99); CHOLESTEROL 112 MG/DL (0-200); FREE T4 (FREE THYROXINE) 0.91 NG/DL (0.73-1.40); HDL CHOLESTEROL 21 MG/DL (35-60); LDL CHOLESTEROL 52 MG/DL (50-100); TRIGLYCERIDES 119 MG/DL (20-135)
[2024-06-20] MEDS ORDERED: insulin glargine (Lantus) pen - multi-dose SQ SCH (08:51)
[2024-06-20] MEDS: EMPAGLIFLOZIN 10 MG TABLET PO SCH (08:54)
[2024-06-20] MEDS: acetaZOLAMIDE IV 500mg inj IV SCH (08:56)
--- NOTE | 2024-06-20 09:05 | RADIOLOGY REPORT ---
EXAM: DI CHEST,SINGLE VIEW Indication: pna, resp failure Technique: Single frontal view of the chest was obtained Comparison: DI CHEST,SINGLE VIEW on DOS: 06/16/24, DI CHEST,SINGLE VIEW on DOS: 08/11/23, CHEST,SINGLE VIEW on DOS: 09/21/21 FINDINGS: Lines and Tubes: None Lungs: Diffuse interstitial opacities. Pleura: No effusion. No pneumothorax. Cardiomediastinal contours: Cardiomegaly. Atherosclerotic vascular calcifications of the thoracic ao rta are noted. Bones: No acute osseous abnormality. IMPRESSION: Cardiomegaly with diffuse interstitial opacities. Findings suggestive of atypical infection or pulmon sherry edema.
[2024-06-20] MEDS: insulin glargine (Lantus) pen - multi-dose SQ ONE ×2 (09:59→15:18)
[2024-06-20] MEDS: lactose-reduced food (Ensure Enlive) - 237ml bottle PO SCH (12:30)
--- NOTE | 2024-06-20 13:40 | PROGRESS NOTE ---
Daily Progress Note Providers to CC ~ Antibiotic Timeout Antibiotic Ordered?: Yes If Yes, Indications: PNA Subjective No acute events overnight. Patient examined at bedside. No new complaints. Patient denies chest pain, sob, palpitations, abdominal pain, n/v/d. Oxygen demand increasing, oxygen demand down to 9L HF salter. ABG indicated respiratory alkalosis. TTE shows EMMETT 1.28cmsq, moderate to severe aortic insufficiency, LVEF 55-60%, RVSP 35mmHg. Case discussed with his cleaning machine operator Dr. Nieto on 06/19, recommends medical management. Continued on abx, steroid discontinued. Labs unremarkable other than hyperglycemia, Lantus dose adjusted. Objective Vital Signs Date Time Temp Pulse Resp B/P (MAP) Pulse Ox O2 Delivery O2 Flow Rate FiO2 06/20/24 11:42 66 20 High Flow [place] 9.0 06/20/24 11:38 94 06/20/24 11:36 69 06/20/24 11:00 97.2 105/51 (69) Result Diagram: 06/20/24 0634 06/19/24 0544 Physical Exam General: Generalized weakness, A&Ox2, NAD HEENT: Normocephalic, PERRLA Neck: Supple, trachea midline, no JVD Chest: Clear to auscultation bilaterally Cardiovascular: grade 3/5 murmur 2nd intercostal space GI: Soft and nontender Extremities: No cyanosis/clubbing/or edema PLATE GRAINER APPRENTICE: No focal deficits Musculoskeletal: No paraspinal muscle tenderness, no muscle spasm Skin: Warm and intact Problem\Assessment\Plan 78-year-old male with history of CABG who presents with shortness of breath and respiratory distress # Community-acquired pneumonia- POA # Acute hypoxic respiratory failure- POA # Respiratory alkalosis-POA -06/19: continue ceftriaxone, zithromax; discontinue steroid; acetazolamide started -06/20: at 9L HF, pending rehab # Acute decompensated diastolic heart failure- POA # Aortic regurgitation, moderate to severe # Hx CABG -06/19: TTE shows EMMETT 1.28cmsq, moderate to severe aortic insufficiency, LVEF 55- 60%, RVSP 35mmHg; pBNP 2690; continue home aspirin, statin -GDMT as tolerated -case discussed with his cleaning machine operator Dr. Nieto, recommends medical management # Hyperglycemia 2/2 steroid -Lantus, supplemental # Bipolar disorder # Hypothyroidism -TSH wnl, follow T4, continue home med Code status: Full Code DVT/VTE Prophylaxis: heparin Date of Service: June 20, 2024 Billing Provider: PAOLA SIMMONS Common Visit Codes: [id number] INP/OBS CARE(HIGH) PAOLA SIMMONS June 20, 2024 13:40
[2024-06-21] VITALS (29 sets, daily range): BP systolic 116–143; BP diastolic 38–88; PULSE 73–86; RESP 17–74; TEMP 97.5–98.6; O2SAT 89–99
[2024-06-21 06:57] LABS: BASOPHILS % (AUTO) 0.1 % (0-1); EOSINOPHILS # (AUTO) 0.3 X10'3 (0-0.9); EOSINOPHILS % (AUTO) 2.2 % (0-6); HEMATOCRIT 35.8 % (42.0-52.0); HEMOGLOBIN 11.9 g/dl (14.0-17.9); LYMPHOCYTES # (AUTO) 0.9 X10'3 (1.1-4.8); LYMPHOCYTES % (AUTO) 5.9 % (21-51); MEAN CORPUSCULAR HEMOGLOBIN 30.3 PG (27.0-31.0); MEAN CORPUSCULAR HGB CONC 33.2 g/dL (33.0-36.5); MEAN PLATELET VOLUME 7.4 FL (7.4-10.4); MONOCYTES # (AUTO) 0.8 X10'3 (0-0.9); MONOCYTES % (AUTO) 5.8 % (2-12); NEUTROPHILS # (AUTO) 12.4 X10'3 (1.8-7.7); PLATELET COUNT 338 X10'3 (140-440); RED BLOOD COUNT 3.93 X10'6 (4.70-6.10); RED CELL DISTRIBUTION WIDTH 12.6 % (11.5-14.5); WHITE BLOOD COUNT 14.4 X10'3 (4.5-11.0)
[2024-06-21] MEDS ORDERED: insulin glargine (Lantus) pen - multi-dose SQ SCH (08:00)
[2024-06-21 08:05] LABS: ABG BASE EXCESS -2.2 mmol/L (-2.0-3.0); ABG HCO3 21.3 mmol/L (21.0-28.0); ABG OXYGEN SATURATION 89.7 % (94.0-98.0); ABG PH (T) 7.438 (7.350-7.450); ABG PO2 (T) 55.2 mmHg (83.0-108.0); ALLEN'S TEST POSITIVE; FCOHb 1.7 % (0.5-1.5); FHHb 10.1 % (0.0-5.0); FLOW 15 L/min; FMetHb 0.3 % (0.0-1.5); FO2Hb 87.9 % (94.0-98.0); MODE HIGH FLOW; PATIENT TEMPERATURE 36.4
[2024-06-21 08:15] LABS: ALANINE AMINOTRANSFERASE 56 U/L (12-78); ALBUMIN 2.3 G/DL (3.4-5.0); ALBUMIN/GLOBULIN RATIO 0.6 (1.1-1.5); ALKALINE PHOSPHATASE 52 IU/L (46-116); ANION GAP 8 (8-16); ASPARTATE AMINO TRANSFERASE 29 U/L (10-37); BILIRUBIN,TOTAL 0.7 MG/DL (0.1-1.0); BLOOD UREA NITROGEN 35 MG/DL (7-18); BUN/CREATININE RATIO 35.7 (10.0-20.0); CHLORIDE 107 MMOL/L (99-107); CREATININE 0.98 MG/DL (0.60-1.10); FERRITIN 861 NG/ML (26-388); GLUCOSE 164 MG/DL (70-104); POTASSIUM 4.2 MMOL/L (3.5-5.1); SODIUM 137 MMOL/L (135-145); TOTAL CARBON DIOXIDE 22.4 MMOL/L (24-32); TOTAL PROTEIN 6.1 G/DL (6.4-8.2); eCRCL 66 ML/MIN; eGFR 74 ML/MIN
[2024-06-21] MEDS: furosemide 20 MG/2 ML vial IV SCH (08:31)
[2024-06-21] MEDS: acetaZOLAMIDE IV 500mg inj IV SCH (08:32)
[2024-06-21] MEDS: insulin glargine (Lantus) pen - multi-dose SQ SCH (08:40)
[2024-06-21] MEDS: magnesium hydroxide 30ml (MOM) UD suspension PO PRN (10:48)
[2024-06-21] MEDS: bisacodyl 10mg suppository rectal RC PRN (10:48)
[2024-06-21] MEDS: docusate sod 100mg capsule PO SCH (10:48)
--- NOTE | 2024-06-21 12:32 | PROGRESS NOTE ---
Daily Progress Note Providers to CC ~ Antibiotic Timeout Antibiotic Ordered?: Yes If Yes, Indications: PNA Subjective No acute events overnight. Patient examined at bedside. No new complaints. Patient denies chest pain, sob, palpitations, abdominal pain, n/v/d. Oxygen demand increasing, oxygen demand down to 9L HF salter. ABG indicated respiratory alkalosis. TTE shows EMMETT 1.28cmsq, moderate to severe aortic insufficiency, LVEF 55-60%, RVSP 35mmHg. Case discussed with his damage adjuster Dr. Nieto on 06/19, recommends medical management. Continued on abx. On 13-15L HF NC, attempting to titrate down as tolerated. Labs unremarkable. Consulted ID Dr. Ruggiero. Objective Vital Signs Date Time Temp Pulse Resp B/P (MAP) Pulse Ox O2 Delivery O2 Flow Rate FiO2 06/21/24 11:44 74 74 High Flow [place] 13.0 06/21/24 11:41 95 06/21/24 11:38 71 06/21/24 11:00 97.9 116/45 (68) Result Diagram: 06/21/24 0606/21/24 0627 Physical Exam General: Generalized weakness, A&Ox2, NAD HEENT: Normocephalic, PERRLA Neck: Supple, trachea midline, no JVD Chest: Clear to auscultation bilaterally Cardiovascular: grade 3/5 murmur 2nd intercostal space GI: Soft and nontender Extremities: No cyanosis/clubbing/or edema CUSTOMS INSPECTOR: No focal deficits Musculoskeletal: No paraspinal muscle tenderness, no muscle spasm Skin: Warm and intact Problem\Assessment\Plan 78-year-old male with history of CABG who presents with shortness of breath and respiratory distress # Community-acquired pneumonia- POA # Acute hypoxic respiratory failure- POA # Respiratory alkalosis-POA -06/19: continue ceftriaxone, zithromax; discontinue steroid; acetazolamide started -06/20: at 9L HF, pending rehab -06/21: at 13-15HF, follow sputum culture; consulted ID Dr. Ruggiero # Acute decompensated diastolic heart failure- POA # Aortic regurgitation, moderate to severe # Hx CABG -06/19: TTE shows EMMETT 1.28cmsq, moderate to severe aortic insufficiency, LVEF 55- 60%, RVSP 35mmHg; pBNP 2690; continue home aspirin, statin -GDMT as tolerated -case discussed with his damage adjuster Dr. Nieto, recommends medical management # Hyperglycemia 2/2 steroid -Lantus, supplemental # Bipolar disorder # Hypothyroidism -TSH wnl, follow T4, continue home med Code status: Full Code DVT/VTE Prophylaxis: heparin Date of Service: June 21, 2024 Billing Provider: PAOLA SIMMONS Common Visit Codes: [id number] INP/OBS CARE(HIGH) PAOLA SIMMONS June 21, 2024 12:32
--- NOTE | 2024-06-21 15:45 | RADIOLOGY REPORT ---
CHEST RADIOGRAPH Indication: DROPPING IN , SOB Technique: Single frontal view of the chest was obtained Comparison: DI CHEST,SINGLE VIEW on DOS: 06/20/24, DI CHEST,SINGLE VIEW on DOS: 06/16/24, DI CHEST,SINGL E VIEW on DOS: 08/11/23 FINDINGS: Lines and Tubes: None Lungs: Bilateral perihilar infiltrates and airspace disease in both lung bases Pleura: No effusion. No pneumothorax. Cardiomediastinal contours: Unremarkable Bones: No acute osseous abnormality. IMPRESSION: 1. Bilateral perihilar infiltrates and airspace disease in both lung bases. Findings appear worse gene n 06/20/2024
[2024-06-21] MEDS: levoFLOXACIN-Levaquin 750MG/D5 150 ML IV STA (17:28)
[2024-06-21] MEDS: lactobacillus rhamnosus 10,000 MMU CELLS/CAPSULE PO SCH (21:38)
[2024-06-22] VITALS (32 sets, daily range): BP systolic 119–138; BP diastolic 43–50; PULSE 75–90; RESP 16–26; TEMP 97.1–98.1; O2SAT 22–98
[2024-06-22 05:22] LABS: BILIRUBIN,URINE NEGATIVE (Neg); CLARITY,URINE CLEAR (Clear); COLOR,URINE YELLOW (Yellow); GLUCOSE, URINE 500 mg/dl (Neg); KETONES,URINE NEGATIVE (Neg); LEUKOCYTE ESTERASE ,URINE NEGATIVE (Neg); OCCULT BLOOD,URINE NEGATIVE (Neg); PROTEIN,URINE NEGATIVE (Neg); UROBILINOGEN,URINE 0.2 E.U/dL (0.2-1.0)
[2024-06-22 05:28] LABS: NITRITES, URINE NEGATIVE (Neg); UA COLLECTION TYPE CLN CATCH MIDSTREAM
[2024-06-22 05:40] LABS: BASOPHILS % (AUTO) 0.2 % (0-1); EOSINOPHILS # (AUTO) 0.2 X10'3 (0-0.9); EOSINOPHILS % (AUTO) 1.1 % (0-6); HEMATOCRIT 36.3 % (42.0-52.0); HEMOGLOBIN 12.3 g/dl (14.0-17.9); LYMPHOCYTES # (AUTO) 0.5 X10'3 (1.1-4.8); LYMPHOCYTES % (AUTO) 3.8 % (21-51); MEAN CORPUSCULAR HEMOGLOBIN 30.9 PG (27.0-31.0); MEAN CORPUSCULAR HGB CONC 33.9 g/dL (33.0-36.5); MEAN CORPUSCULAR VOLUME 91.1 FL (78-98); MEAN PLATELET VOLUME 7.1 FL (7.4-10.4); MONOCYTES % (AUTO) 7.1 % (2-12); NEUTROPHILS # (AUTO) 12.4 X10'3 (1.8-7.7); NEUTROPHILS % (AUTO) 87.8 % (42-75); PLATELET COUNT 340 X10'3 (140-440); RED BLOOD COUNT 3.98 X10'6 (4.70-6.10); RED CELL DISTRIBUTION WIDTH 12.6 % (11.5-14.5); WHITE BLOOD COUNT 14.1 X10'3 (4.5-11.0)
[2024-06-22 06:05] LABS: ALANINE AMINOTRANSFERASE 45 U/L (12-78); ALBUMIN 2.3 G/DL (3.4-5.0); ALBUMIN/GLOBULIN RATIO 0.6 (1.1-1.5); ALKALINE PHOSPHATASE 56 IU/L (46-116); ANION GAP 7 (8-16); ASPARTATE AMINO TRANSFERASE 21 U/L (10-37); BILIRUBIN,TOTAL 0.6 MG/DL (0.1-1.0); BLOOD UREA NITROGEN 37 MG/DL (7-18); BUN/CREATININE RATIO 34.3 (10.0-20.0); CHLORIDE 103 MMOL/L (99-107); CREATININE 1.08 MG/DL (0.60-1.10); GLUCOSE 157 MG/DL (70-104); POTASSIUM 4.1 MMOL/L (3.5-5.1); SODIUM 136 MMOL/L (135-145); TOTAL CARBON DIOXIDE 25.9 MMOL/L (24-32); TOTAL PROTEIN 6.2 G/DL (6.4-8.2); eCRCL 60 ML/MIN; eGFR 66 ML/MIN
[2024-06-22] MEDS: levoFLOXACIN-Levaquin 750MG/D5 150 ML IV SCH (08:54)
[2024-06-22] MEDS: insulin glargine (Lantus) pen - multi-dose SQ SCH (08:55)
--- NOTE | 2024-06-22 10:09 | PROGRESS NOTE ---
Daily Progress Note Providers to CC ~ Antibiotic Timeout Antibiotic Ordered?: Yes Subjective No acute events overnight. Patient examined at bedside. No new complaints. Patient denies chest pain, sob, palpitations, abdominal pain, n/v/d. Oxygen demand at 11L HF salter. ABG indicated respiratory alkalosis. TTE shows EMMETT 1.28cmsq, moderate to severe aortic insufficiency, LVEF 55-60%, RVSP 35mmHg. Case discussed with his sap basis administrator Dr. Nieto on 06/19, recommends medical management. Continued on abx. Labs persistent leukocytosis, blood culture resulted negative. Consulted ID Dr. Ruggiero, recommends to wait for respiratory culture to result and to continue current regimen until then. Objective Vital Signs Date Time Temp Pulse Resp B/P (MAP) Pulse Ox O2 Delivery O2 Flow Rate FiO2 06/22/24 09:31 95 10.0 06/22/24 08:38 87 24 06/22/24 08:34 High Flow [place] 06/22/24 08:27 71 06/22/24 06:00 97.4 137/49 (78) Result Diagram: 06/22/24 0527 06/22/24 05 Physical Exam General: Generalized weakness, A&Ox2, NAD HEENT: Normocephalic, PERRLA Neck: Supple, trachea midline, no JVD Chest: Clear to auscultation bilaterally Cardiovascular: grade 3/5 murmur 2nd intercostal space GI: Soft and nontender Extremities: No cyanosis/clubbing/or edema MEDIA JOB TITLES: No focal deficits Musculoskeletal: No paraspinal muscle tenderness, no muscle spasm Skin: Warm and intact Problem\Assessment\Plan 78-year-old male with history of CABG who presents with shortness of breath and respiratory distress # Community-acquired pneumonia- POA # Acute hypoxic respiratory failure- POA # Respiratory alkalosis-POA -06/19: continue ceftriaxone, zithromax; discontinue steroid; acetazolamide started -06/20: at 9L HF, pending rehab -06/21: at 13-15HF, follow sputum culture, started Levaquin; consulted ID Dr. Ruggiero -06/22: at 11L HF, pending respiratory culture # Acute decompensated diastolic heart failure- POA # Aortic regurgitation, moderate to severe # Hx CABG -06/19: TTE shows EMMETT 1.28cmsq, moderate to severe aortic insufficiency, LVEF 55- 60%, RVSP 35mmHg; pBNP 2690; continue home aspirin, statin -GDMT as tolerated -case discussed with his sap basis administrator Dr. Nieto, recommends medical management # Hyperglycemia 2/2 steroid -Lantus, supplemental # Bipolar disorder # Hypothyroidism -TSH wnl, follow T4, continue home med Code status: Full Code DVT/VTE Prophylaxis: heparin Date of Service: June 22, 2024 Billing Provider: PAOLA SIMMONS Common Visit Codes: [id number] INP/OBS CARE(HIGH) PAOLA SIMMONS June 22, 2024 10:09
--- NOTE | 2024-06-22 11:20 | ELECTROCARDIOGRAPH REPORT ---
[facility] Test Date: 2024-06-22 Test Time: 11:17:13 Pat Name: ARPAN HUSAIN Department: [facility] Patient ID: [facility]-[id number] Room: [place] [id number] A Gender: M Line Decorator: : 1945 Requested By: PAOLA SIMMONS Order Number: [id number] Reading MD: Dr. MAE Caba Measurements Intervals [place] Rate: 77 P: 57 VT: 123 QRS: 29 QRSD: 130 T: -35 QT: 445 QTc: 504 Interpretive Statements Sinus rhythm Probable left atrial enlargement Left ventricular hypertrophy Inferior infarct, age indeterminate Prolonged QT interval Electronically Signed On 06-22-2024 12:12:[address] MAE Caba Please click the below link to view image of tracing.
[2024-06-22] MEDS: HYDROcodone/acetaminophen 5mg/325mg tablet PO PRN (12:22)
[2024-06-22] MEDS: heparin, porcine 5000 units/ml vial SQ SCH (16:08)
[2024-06-22] MEDS: acetaminophen 325mg tablet PO PRN (19:06)
--- NOTE | 2024-06-22 23:23 | CONSULTATION REPORT ---
Consult Consult Consultation Reason for Consult: PNA not responding to abx Consulting Provider: Satnam Chappell Antibiotic Days: Levaquin 1 S/P Rocephin, Azithro Lines: PIV Micro: 06/16 Blood- ngtd 06/22 Sputum- pendng HPI: Patient is a 78 year old male with well controlled DM who presented to [facility] on 06/16 with dyspnea. He had reported a gradual onset to the ER provider though he tells me today that he sat up gasping for air and then he called his son who called 911. Upon arrival, he was diagnosed with Pneumonia and started on Rocephin/Azithrom. Despite this regimen, his O2 needs continue to climb so ID is asked to consult. On current exam, he denies any affiliated URI symptoms nor sick contacts, though he does tell me his fatigue is profound. Recently he went on a trip to a reunion at [facility] but cannot recall any issues there. He has not done much travelling in his life, aside from living in [facility]. 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 Home meds are reviewed for any potential pulmonary toxicities. He denies any immunocompromising conditions. Past Medical/Surgical History: Coronary Artery Disease s/p CABG, Hypertension, Diabetes, Bipolar Current Medications Medications (Trade) Dose Ordered Sig/Raisa Route PRN Reason Start Time Stop Time Status Last Admin Dose Admin Ceftriaxone Sodium/Dextrose 50 ml @ 100 mls/hr ONCE ONCE IV 06/16/24 05:30 06/16/24 05:59 DC 06/16/24 05:43 100 MLS/HR Azithromycin 250 ml @ 250 mls/hr ONCE ONCE IV 06/16/24 09:05 06/16/24 10:04 DC 06/16/24 09:28 250 MLS/HR Methylprednisolone Sodium Succinate (SoluMEDROL 125mg inj) 125 mg ONCE ONCE IV 06/16/24 09:05 06/16/24 09:07 DC 06/16/24 09:27 125 MG Acetaminophen (Tylenol tablet) 650 mg Q6H PRN PO MILD PAIN (1-3 ON 0-10 SCALE) 06/16/24 11:50 06/22/24 19:06 650 MG Acetaminophen/ Hydrocodone Bitart ([place] 5/325mg tablet) 1 tab Q8H PRN PO moderate or severe pain 4-10 06/16/24 11:50 06/22/24 12:22 1 TAB Heparin Sodium (Porcine) (heparin, porcine 5000 unit/ ml 1ml vial) 5,000 unit Q12H SQ 06/16/24 20:00 06/22/24 11:35 DC 06/22/24 08:52 5,000 UNIT Albuterol (Proventil 2.5 MG/3ML nebule) 2.5 mg Q4H NEB 06/16/24 12:00 06/22/24 23:15 2.5 MG Methylprednisolone Sodium Succinate (Solu-Medrol 40mg inj.) 60 mg BID IV 06/16/24 20:00 06/18/24 08:48 DC 06/17/24 20:44 60 MG Ceftriaxone Sodium/Dextrose 50 ml @ 100 mls/hr DAILY IV 06/17/24 08:00 06/21/24 17:13 DC 06/21/24 08:31 100 MLS/HR Azithromycin 250 ml @ 250 mls/hr Q24H IV 06/17/24 08:00 06/21/24 17:13 DC 06/21/24 08:31 250 MLS/HR Bupropion HCl (Wellbutrin SR tablet) 150 mg DAILY PO 06/16/24 17:31 06/22/24 08:52 150 MG Fluoxetine HCl (Prozac capsule) 80 mg QAM PO 06/17/24 08:00 06/22/24 08:51 80 MG Gabapentin (Neurontin capsule) 600 mg DAILY PO 06/17/24 08:00 06/18/24 08:48 DC 06/17/24 08:22 600 MG Gabapentin (Neurontin capsule) 900 mg HS PO 06/16/24 21:00 06/17/24 10:31 DC 06/16/24 20:25 900 MG Levothyroxine Sodium (Synthroid tablet) 175 mcg DAILY@0700 PO 06/17/24 07:00 06/22/24 08:52 175 MCG Quetiapine Fumarate (Seroquel) 200 mg HS PO 06/16/24 21:00 06/22/24 21:39 200 MG Risperidone (Risperdal tablet) 1 mg HS PO 06/16/24 21:00 06/22/24 21:40 1 MG Tamsulosin HCl (Flomax capsule) 0.4 mg BID PO 06/16/24 20:00 06/22/24 19:06 0.4 MG Aspirin (Ecotrin tablet) 1 tab DAILY PO 06/17/24 08:00 06/22/24 08:51 1 TAB Atorvastatin Calcium (Lipitor tablet) 40 mg HS PO 06/16/24 21:00 06/22/24 21:40 40 MG Pantoprazole Sodium (Protonix) 40 mg BKF PO 06/17/24 07:30 06/22/24 08:51 40 MG Magnesium Oxide (mag-Ox 400mg tablet) 400 mg DAILY PO 06/16/24 17:34 06/22/24 08:51 400 MG Finasteride (Proscar tablet) 5 mg DAILY PO 06/16/24 17:55 06/22/24 08:53 5 MG Alprazolam (Xanax tablet) 0.5 mg Q8H ONCE PO 06/16/24 20:00 06/16/24 20:12 DC 06/16/24 20:25 0.5 MG Alprazolam (Xanax tablet) 0.5 mg ONCE ONCE PO 06/17/24 10:20 06/17/24 10:21 DC 06/17/24 10:42 0.5 MG Alprazolam (Xanax tablet) 0.5 mg Q12H PRN PO anxiety 06/17/24 10:30 06/18/24 10:44 DC 06/18/24 09:31 0.5 MG Hydralazine HCl (Apresoline inj.) 10 mg Q6H PRN IV SBP>160 06/17/24 20:15 06/17/24 21:59 10 MG Alprazolam (Xanax tablet) 1.5 mg ONCE PRN PO anxiety 06/17/24 23:00 06/18/24 10:44 DC 06/17/24 23:20 1.5 MG Gabapentin (Neurontin capsule) 300 mg DAILY PO 06/19/24 08:00 06/22/24 08:51 300 MG Methylprednisolone Sodium Succinate (Solu-Medrol 40mg inj.) 40 mg BID IV 06/18/24 20:00 06/19/24 16:16 DC 06/19/24 07:29 40 MG Alprazolam (Xanax tablet) 2 mg HS PO 06/18/24 21:00 5/4/25 21:39 2 MG Gabapentin (Neurontin capsule) 300 mg ONCE ONCE PO 06/18/24 20:00 06/18/24 20:01 DC 06/18/24 20:49 300 MG Acetazolamide Sodium (Diamox IV) 500 mg ONCE ONCE IV 06/19/24 08:10 06/19/24 08:13 DC 06/19/24 09:34 500 MG Acetazolamide Sodium (Diamox IV) 250 mg DAILY IV 06/20/24 08:00 06/21/24 07:27 DC 06/20/24 08:56 250 MG Gabapentin (Neurontin capsule) 600 mg HS PO 06/19/24 21:00 06/22/24 21:39 600 MG Carvedilol (Coreg tablet) 3.125 mg BID PO 06/19/24 20:00 06/22/24 19:05 3.125 MG Empaglifozin (JARDIANCE 10mg tablet) 10 mg DAILY PO 06/20/24 08:00 06/22/24 08:52 10 MG Empaglifozin (JARDIANCE 10mg tablet) 10 mg ONCE ONCE PO 06/19/24 16:20 06/19/24 16:24 DC 06/19/24 16:51 10 MG Insulin Glargine (Lantus inj) 5 unit ONCE ONCE SQ 06/20/24 09:30 06/20/24 09:31 DC 06/20/24 09:59 5 UNIT Lactose (Ensure Enlive - 237ML) 1 can WL PO 06/20/24 12:30 06/22/24 12:32 1 CAN Insulin Glargine (Lantus inj) 10 unit DAILY SQ 06/21/24 08:00 06/21/24 12:32 DC 06/21/24 08:40 10 UNIT Insulin Glargine (Lantus inj) 5 unit ONCE ONCE SQ 06/20/24 13:40 06/20/24 13:47 DC 06/20/24 15:18 5 UNIT Acetazolamide Sodium (Diamox IV) 250 mg Q12H IV 06/21/24 08:00 06/22/24 21:41 250 MG Furosemide (Lasix inj) 20 mg DAILY IV 06/21/24 08:00 06/22/24 08:52 20 MG Bisacodyl (Dulcolax suppository) 10 mg DAILY PRN RC constipation 06/21/24 10:40 06/21/24 10:48 10 MG Docusate Sodium (Colace capsule) 100 mg BID PO 06/21/24 10:40 06/22/24 19:05 100 MG Magnesium Hydroxide (milk of magnesia oral suspension) 30 ml DAILY PRN PO constipation 06/21/24 10:40 06/21/24 10:48 30 ML Insulin Glargine (Lantus inj) 7 unit DAILY SQ 06/22/24 08:00 06/22/24 08:55 7 UNIT Levofloxacin 150 ml @ 100 mls/hr Q24H IV 06/22/24 08:00 06/22/24 08:54 100 MLS/HR Levofloxacin 150 ml @ 100 mls/hr ONCE STAT IV 06/21/24 17:12 06/21/24 18:41 DC 06/21/24 17:28 100 MLS/HR Lactobacillus Rhamnosus (Culturelle capsule) 10,000 mmu DAILY PO 06/21/24 20:00 06/22/24 08:51 10,000 MMU Heparin Sodium (Porcine) (heparin, porcine 5000 unit/ ml 1ml vial) 5,000 unit Q8H SQ 06/22/24 16:00 06/22/24 16:08 5,000 UNIT Social History: As in HPI, He has a son who went to [place] Family History: Noncontributory ROS: As in HPI, otherwise negative Objective: Vitals: Afebrile, 81, 20, 138/49, 90% on 12L General: A&Ox3, NAD HEENT: NC/AT, normal conjunctiva, no oral lesions CV: Regular Resp: Patient desatted while talking, he was not pulling in much air to consultation Abd: Soft, nontender, nondistended Ext: Some edema Lines: PIV ok Laboratory Tests 06/22/24 05:27 06/16 CT 1. No central pulmonary embolism. The other pulmonary branches are not evaluated due to suboptimal enhancement. 2. Left upper and lower lobe pneumonia. 3. Emphysema. 4. Mediastinal lymphadenopathy. Assessment: // Ground glass seen on CT - per my own read this does not have the appearance of Pneumonia though atypical infections are possible. Patient denies any history of immunocompromising infections, URI symptoms, sick contacts. He did just return from [place] but his disease is predominantly left sided. Ddx includes pneumonitis > fluid overload > > Legionella, Chlamydia, Bordatella, Viruses. He denies any significant exposures // Leukocytosis, afebrile likely reactive to hypoxia. Procal normal // Acute respiratory failure, seen on high flow. See above // VHD - moderate with moderate-severe AR // DM // Antibiotic Allergies: none known // MRSA Screen: negative Plan: - Ok to continue Levaquin until atypical infection is ruled out. No need for Vanc at this juncture - Would recommend steroids - Check legionella urinary antigen. Other work up would be approprite if he becomes febrile - Monitor WBC count, temp, O2 requirement - Physical therapy - Thank you for the consult, will continue to follow SANCHO FONTENOT DO June 22, 2024 23:23
[2024-06-23] VITALS (25 sets, daily range): BP systolic 115–136; BP diastolic 42–58; PULSE 69–97; RESP 16–24; TEMP 97–98.6; O2SAT 86–97
[2024-06-23] MEDS ORDERED: methylPREDNISolone sod succ 125mg/2ml vial IV SCH (08:00)
[2024-06-23 08:14] LABS: BASOPHILS % (AUTO) 0.1 % (0-1); EOSINOPHILS # (AUTO) 0.2 X10'3 (0-0.9); EOSINOPHILS % (AUTO) 1.8 % (0-6); HEMATOCRIT 35.8 % (42.0-52.0); HEMOGLOBIN 11.9 g/dl (14.0-17.9); LYMPHOCYTES # (AUTO) 0.6 X10'3 (1.1-4.8); LYMPHOCYTES % (AUTO) 4.5 % (21-51); MEAN CORPUSCULAR HEMOGLOBIN 30.1 PG (27.0-31.0); MEAN CORPUSCULAR HGB CONC 33.3 g/dL (33.0-36.5); MEAN CORPUSCULAR VOLUME 90.3 FL (78-98); MEAN PLATELET VOLUME 7.2 FL (7.4-10.4); MONOCYTES # (AUTO) 0.8 X10'3 (0-0.9); MONOCYTES % (AUTO) 5.6 % (2-12); NEUTROPHILS # (AUTO) 11.9 X10'3 (1.8-7.7); PLATELET COUNT 380 X10'3 (140-440); RED BLOOD COUNT 3.96 X10'6 (4.70-6.10); RED CELL DISTRIBUTION WIDTH 12.4 % (11.5-14.5); WHITE BLOOD COUNT 13.5 X10'3 (4.5-11.0)
[2024-06-23 08:44] LABS: ALANINE AMINOTRANSFERASE 43 U/L (12-78); ALBUMIN 2.2 G/DL (3.4-5.0); ALBUMIN/GLOBULIN RATIO 0.6 (1.1-1.5); ALKALINE PHOSPHATASE 53 IU/L (46-116); ANION GAP 9 (8-16); ASPARTATE AMINO TRANSFERASE 29 U/L (10-37); BILIRUBIN,TOTAL 0.5 MG/DL (0.1-1.0); BLOOD UREA NITROGEN 36 MG/DL (7-18); BUN/CREATININE RATIO 35.6 (10.0-20.0); CALCIUM 8.8 MG/DL (8.5-10.1); CHLORIDE 103 MMOL/L (99-107); CREATININE 1.01 MG/DL (0.60-1.10); GLUCOSE 148 MG/DL (70-104); SODIUM 135 MMOL/L (135-145); TOTAL PROTEIN 6.1 G/DL (6.4-8.2); eCRCL 64 ML/MIN; eGFR 71 ML/MIN
[2024-06-23] MEDS: methylPREDNISolone sod succ/PF 40mg inj. IV SCH (10:54)
--- NOTE | 2024-06-23 11:00 | PROGRESS NOTE ---
Progress Note ID Providers to CC ~ Progress Note Progress Note: Antibiotic Days: Levaquin 2 Lines: PIV Micro: 06/16 Blood- negative 06/22 Sputum- normal jeffrey Subjective: Patient was still seen on 12L but the steroids are just getting started. His son was at bedside who provided more history. 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 They do not think there was any viral prodrome but the son will check with the caregivers to be sure. He has been of low activity level lately and not walking much Objective: Vitals: Afebrile, 76, 16, 131/51, 91% on 12L General: A&Ox3, NAD CV: Regular Resp: Poor air exchange Abd: Soft, nontender, nondistended Ext: Some edema Lines: PIV ok Laboratory Tests 06/23/24 07:48 Assessment: // Ground glass seen on CT - per my own read this does not have the appearance of Pneumonia though atypical infections are possible. Patient denies any history of immunocompromising infections, URI symptoms, sick contacts. Ddx includes pneumonitis > fluid overload > > Legionella, Chlamydia, Bordatella, Viruses. He does have significant exposure to smoke over his lifetime // Leukocytosis, afebrile likely reactive to hypoxia. Procal normal // Acute respiratory failure, seen on 12L again. See above // VHD - moderate with moderate-severe AR // DM // Antibiotic Allergies: none known // MRSA Screen: negative Plan: - Continue Levaquin until atypical infection is ruled out - Appreciate steroids - Follow up Legionella Ag; add ANCA, MARSHA, LDH - Monitor WBC count, temp, O2 requirement - Physical therapy - Will continue to follow SANCHO FONTENOT DO June 23, 2024 11:00
--- NOTE | 2024-06-23 16:24 | PROGRESS NOTE ---
Daily Progress Note Providers to CC ~ Antibiotic Timeout Antibiotic Ordered?: Yes If Yes, Indications: PNA Subjective No acute events overnight. Patient examined at bedside. No new complaints. Patient denies chest pain, sob, palpitations, abdominal pain, n/v/d. Oxygen demand at 12-15L HF salter, oxygen demand not improving. ABG indicated respiratory alkalosis. TTE shows EMMETT 1.28cmsq, moderate to severe aortic insufficiency, LVEF 55-60%, RVSP 35mmHg. Case discussed with his cripple worker Dr. Nieto on 06/19, recommends medical management. Continued on abx. Labs persistent leukocytosis, blood culture resulted negative. Consulted ID Dr. Ruggiero, recommends to wait for respiratory culture to result and to continue current regimen until then. Started steroid per ID recommendation. Objective Vital Signs Date Time Temp Pulse Resp B/P (MAP) Pulse Ox O2 Delivery O2 Flow Rate FiO2 06/23/24 15:35 82 24 High Flow Salter 14.0 06/23/24 15:27 95 06/23/24 15:26 70 06/23/24 06:00 98.6 131/51 (77) Result Diagram: 06/23/24 0748 06/23/24 0748 Physical Exam General: Generalized weakness, Fatigued, A&Ox2, NAD HEENT: Normocephalic, PERRLA Neck: Supple, trachea midline, no JVD Chest: Clear to auscultation bilaterally Cardiovascular: grade 3/5 murmur 2nd intercostal space GI: Soft and nontender Extremities: No cyanosis/clubbing/or edema CONSUMER SERVICES CONSULTANT: No focal deficits Musculoskeletal: No paraspinal muscle tenderness, no muscle spasm Skin: Warm and intact Problem\Assessment\Plan 78-year-old male with history of CABG who presents with shortness of breath and respiratory distress # Community-acquired pneumonia, severe- POA # Acute hypoxic respiratory failure- POA # Respiratory alkalosis-POA -06/19: continue ceftriaxone, zithromax; discontinue steroid; acetazolamide started -06/20: at 9L HF, pending rehab -06/21: at 13-15HF, follow sputum culture, started Levaquin; consulted ID Dr. Ruggeiro -06/22: at 11L HF, pending respiratory culture -06/23: at 12-15L HF, continued on Levaquin, started steroid per ID recommendation # Acute decompensated diastolic heart failure- POA # Aortic regurgitation, moderate to severe # Hx CABG -06/19: TTE shows EMMETT 1.28cmsq, moderate to severe aortic insufficiency, LVEF 55- 60%, RVSP 35mmHg; pBNP 2690; continue home aspirin, statin -GDMT as tolerated -case discussed with his cripple worker Dr. Nieto, recommends medical management # Hyperglycemia 2/2 steroid -Lantus, supplemental # Bipolar disorder # Hypothyroidism -TSH wnl, follow T4, continue home med Code status: Full Code DVT/VTE Prophylaxis: heparin Date of Service: June 23, 2024 Billing Provider: PAOLA SIMMONS Common Visit Codes: [id number] INP/OBS CARE(HIGH) PAOLA SIMMONS June 23, 2024 16:24
[2024-06-24] VITALS (25 sets, daily range): BP systolic 115–155; BP diastolic 38–59; PULSE 71–86; RESP 16–27; TEMP 97–98.7; O2SAT 91–100
[2024-06-24 05:55] LABS: BASOPHILS % (AUTO) 0.1 % (0-1); EOSINOPHILS % (AUTO) 0 % (0-6); HEMATOCRIT 35.7 % (42.0-52.0); HEMOGLOBIN 11.9 g/dl (14.0-17.9); LYMPHOCYTES # (AUTO) 0.6 X10'3 (1.1-4.8); LYMPHOCYTES % (AUTO) 5.1 % (21-51); MEAN CORPUSCULAR HEMOGLOBIN 30.4 PG (27.0-31.0); MEAN CORPUSCULAR HGB CONC 33.5 g/dL (33.0-36.5); MEAN CORPUSCULAR VOLUME 90.7 FL (78-98); MEAN PLATELET VOLUME 7.3 FL (7.4-10.4); MONOCYTES # (AUTO) 0.6 X10'3 (0-0.9); MONOCYTES % (AUTO) 4.8 % (2-12); NEUTROPHILS # (AUTO) 10.8 X10'3 (1.8-7.7); PLATELET COUNT 410 X10'3 (140-440); RED BLOOD COUNT 3.93 X10'6 (4.70-6.10); RED CELL DISTRIBUTION WIDTH 12.8 % (11.5-14.5)
[2024-06-24 06:14] LABS: ALANINE AMINOTRANSFERASE 46 U/L (12-78); ALBUMIN 2.1 G/DL (3.4-5.0); ALBUMIN/GLOBULIN RATIO 0.5 (1.1-1.5); ALKALINE PHOSPHATASE 52 IU/L (46-116); ANION GAP 10 (8-16); ASPARTATE AMINO TRANSFERASE 24 U/L (10-37); BILIRUBIN,TOTAL 0.3 MG/DL (0.1-1.0); BLOOD UREA NITROGEN 40 MG/DL (7-18); BUN/CREATININE RATIO 37.4 (10.0-20.0); CALCIUM 9.1 MG/DL (8.5-10.1); CHLORIDE 102 MMOL/L (99-107); CREATININE 1.07 MG/DL (0.60-1.10); GLUCOSE 201 MG/DL (70-104); POTASSIUM 4.2 MMOL/L (3.5-5.1); SODIUM 136 MMOL/L (135-145); TOTAL CARBON DIOXIDE 24.4 MMOL/L (24-32); TOTAL PROTEIN 6.2 G/DL (6.4-8.2); eCRCL 61 ML/MIN; eGFR 67 ML/MIN
--- NOTE | 2024-06-24 20:11 | PROGRESS NOTE- Residence ---
Progress Note - Resident Providers to CC Resident Creating Document: CINTHYA CAREY RES ~ Antibiotic Timeout Antibiotic Ordered?: Yes Subjective Patient was seen and examined at the bedside. Son is at the bedside. He continues to be on 10 L of high-flow oxygen. Goal is to decrease the high-flow oxygen to 8 L for him to be discharged to [facility] Objective Vital Signs Date Time Temp Pulse Resp B/P (MAP) Pulse Ox O2 Delivery O2 Flow Rate FiO2 06/24/24 19:50 82 19 High Flow Salter 12.0 06/24/24 19:49 96 06/24/24 19:46 67 06/24/24 15:35 97.4 148/44 (78) Result Diagram: 06/24/24 0506/24/24 05 General: Generalized weakness, Fatigued, A&Ox2, NAD HEENT: Normocephalic, PERRLA Neck: Supple, trachea midline, no JVD Chest: Clear to auscultation bilaterally Cardiovascular: grade 3/5 murmur 2nd intercostal space GI: Soft and nontender Extremities: No cyanosis/clubbing/or edema BAR ROLLER: No focal deficits Musculoskeletal: No paraspinal muscle tenderness, no muscle spasm Skin: Warm and intact Assessment Assessment The patient presents with respiratory distress and hypoxia. On exam he has course breath sounds in the left. X-ray shows significant consolidation. Bedside ultrasound without large pleural effusion to drain. Blood cultures pending. He was given IV ceftriaxone. Labs then returned without significant leukocytosis. Troponin is not dangerously elevated and EKG without ischemic changes. A CT scan of the chest will be obtained to further evaluate if this is truly just pneumonia or if there is another process or PE. The patient was signed out at shift change to the oncoming ER provider, pending CT PE and admission. Plan Plan # Community-acquired pneumonia, severe- POA # Acute hypoxic respiratory failure- POA # Respiratory alkalosis-POA -06/19: continue ceftriaxone, zithromax; discontinue steroid; acetazolamide started -06/20: at 9L HF, pending rehab -06/21: at 13-15HF, follow sputum culture, started Levaquin; consulted ID Dr. Ruggiero -06/22: at 11L HF, pending respiratory culture -06/23: at 12-15L HF, continued on Levaquin, started steroid per ID recommendation -06/24 - Follow up Legionella Ag; add ANCA, MARSHA, LDH Ground glass seen on CT - per my own read this does not have the appearance of Pneumonia though atypical infections are possible. Patient denies any history of immunocompromising infections, URI symptoms, sick contacts. Ddx includes pneumonitis > fluid overload > > Legionella, Chlamydia, Bordatella, Viruses. He does have significant exposure to smoke over his lifetime // Leukocytosis, afebrile likely reactive to hypoxia. Procal normal # Acute decompensated diastolic heart failure- POA # Aortic regurgitation, moderate to severe # Hx CABG -06/19: TTE shows EMMETT 1.28cmsq, moderate to severe aortic insufficiency, LVEF 55- 60%, RVSP 35mmHg; pBNP 2690; continue home aspirin, statin -GDMT as tolerated -case discussed with his directional survey drafter Dr. Nieto, recommends medical management # Hyperglycemia 2/2 steroid -Lantus, supplemental # Bipolar disorder # Hypothyroidism -TSH wnl, follow T4, continue home med Code status: Full Code DVT/VTE Prophylaxis: heparin Date of Service: June 24, 2024 Billing Provider: BOYD KWONG MD,CINTHYA CADENA, RES June 24, 2024 20:10
--- NOTE | 2024-06-24 20:29 | CONSULTATION REPORT ---
Consult Consult Consultation Antibiotic Days: Levaquin 3 Lines: PIV Micro: 06/16 Blood- negative 06/22 Sputum- normal jeffrey Subjective: Patient was down to 9L during my exam and he stated he had a good day yesterday. His son was at bedside again. Objective: Vitals: Afebrile, 85, 27, 148/44, 95% on 8L General: Alert, NAD CV: Regular Resp: Poor effort Abd: Soft, nontender, nondistended Ext: Some edema Lines: PIV ok Laboratory Tests 06/24/24 05:27 Assessment: // Ground glass seen on CT - Patient denies any history of immunocompromising conditions, URI symptoms, sick contacts. Ddx includes pneumonitis > fluid overload > > Legionella, Chlamydia, Bordatella, Viruses. He does have significant exposure to smoke over his lifetime. Workup so far reveals LDH high, procal normal, flu/COVID normal // Leukocytosis, afebrile. Improving despite steroids // Acute respiratory failure, improved to 9L on today's exam // VHD - moderate with moderate-severe AR // DM // Antibiotic Allergies: none known // MRSA Screen: negative Plan: - Can DC Levaquin as he has now had 7+ days of Atypcial coverage - Appreciate steroids, may need long taper - Follow up Legionella Ag, ANCA, MARSHA - May need outpatient biopsy - Monitor WBC count, temp, O2 requirement - Physical therapy - Dispo planning; Danilo Riddle - Will continue to follow SANCHO FONTENOT DO June 24, 2024 20:29
[2024-06-25] VITALS (25 sets, daily range): BP systolic 129–138; BP diastolic 41–46; PULSE 72–86; RESP 15–21; TEMP 96.4–97.9; O2SAT 90–96
[2024-06-25 06:05] LABS: BASOPHILS % (AUTO) 0.1 % (0-1); EOSINOPHILS % (AUTO) 0 % (0-6); HEMATOCRIT 37.6 % (42.0-52.0); HEMOGLOBIN 12.5 g/dl (14.0-17.9); LYMPHOCYTES # (AUTO) 0.7 X10'3 (1.1-4.8); LYMPHOCYTES % (AUTO) 4.5 % (21-51); MEAN CORPUSCULAR HEMOGLOBIN 30.1 PG (27.0-31.0); MEAN CORPUSCULAR HGB CONC 33.2 g/dL (33.0-36.5); MEAN CORPUSCULAR VOLUME 90.7 FL (78-98); MEAN PLATELET VOLUME 7.3 FL (7.4-10.4); MONOCYTES # (AUTO) 0.8 X10'3 (0-0.9); MONOCYTES % (AUTO) 5.4 % (2-12); NEUTROPHILS # (AUTO) 13.8 X10'3 (1.8-7.7); PLATELET COUNT 505 X10'3 (140-440); RED BLOOD COUNT 4.14 X10'6 (4.70-6.10); RED CELL DISTRIBUTION WIDTH 12.4 % (11.5-14.5); WHITE BLOOD COUNT 15.3 X10'3 (4.5-11.0)
[2024-06-25 06:21] LABS: ALANINE AMINOTRANSFERASE 49 U/L (12-78); ALBUMIN 2.3 G/DL (3.4-5.0); ALBUMIN/GLOBULIN RATIO 0.6 (1.1-1.5); ALKALINE PHOSPHATASE 52 IU/L (46-116); ANION GAP 8 (8-16); ASPARTATE AMINO TRANSFERASE 28 U/L (10-37); BILIRUBIN,TOTAL 0.3 MG/DL (0.1-1.0); BLOOD UREA NITROGEN 45 MG/DL (7-18); BUN/CREATININE RATIO 42.9 (10.0-20.0); CALCIUM 9.1 MG/DL (8.5-10.1); CHLORIDE 104 MMOL/L (99-107); CREATININE 1.05 MG/DL (0.60-1.10); GLUCOSE 199 MG/DL (70-104); POTASSIUM 4.3 MMOL/L (3.5-5.1); SODIUM 137 MMOL/L (135-145); TOTAL CARBON DIOXIDE 25.3 MMOL/L (24-32); TOTAL PROTEIN 6.4 G/DL (6.4-8.2); eCRCL 62 ML/MIN; eGFR 68 ML/MIN
--- NOTE | 2024-06-25 15:45 | PROGRESS NOTE- Residence ---
Progress Note - Resident Providers to CC Resident Creating Document: LUIS MEJIA CC: BOYD KWONG MD ~ Antibiotic Timeout Antibiotic Ordered?: No Subjective Patient was seen and examined at the bedside. He states he is breathing better, oxygen demand has decreased. Denies any other subjective symptoms Objective Vital Signs Date Time Temp Pulse Resp B/P (MAP) Pulse Ox O2 Delivery O2 Flow Rate FiO2 06/25/24 12:43 86 19 High Flow Salter 7.0 06/25/24 12:42 91 06/25/24 12:38 50 06/25/24 02:00 97.9 129/41 (70) Result Diagram: 06/25/24 0501 06/25/24 0501 General: awake, alert oriented to place, time, and person HEENT: High-flow nasal cannula in place. No pallor present, no icterus, moist mucous membranes Neck: No masses and tenderness Resp: Unlabored. Faint crackles in both lung bases. No rhonchi or wheezing Heart: Regular Rate and rhythm, normal S1 and S2 without murmur, rub or gallop Abdomen: Soft and non tender no organomegaly, no guarding and rigidity, bowel sounds present Neuro: No focal weakness in the upper and lower limb muscles, power of the muscles 4/5 bilateral upper and lower muscles, knee reflex present bilaterally. Cranial nerves intact Extremities: No cyanosis,clubbing or edema Skin: Warm and Dry. No lesions Assessment Assessment The patient presents with respiratory distress and hypoxia. On exam he has course breath sounds in the left. X-ray shows significant consolidation. Bedside ultrasound without large pleural effusion to drain. Blood cultures pending. He was given IV ceftriaxone. Labs then returned without significant leukocytosis. Troponin is not dangerously elevated and EKG without ischemic changes. A CT scan of the chest will be obtained to further evaluate if this is truly just pneumonia or if there is another process or PE. The patient was signed out at shift change to the oncoming ER provider, pending CT PE and admission. Plan Plan Community-acquired pneumonia, severe- POA, resolving Acute hypoxic respiratory failure- POA, improved Respiratory alkalosis-POA -06/19: continue ceftriaxone, zithromax; discontinue steroid; acetazolamide started -06/20: at 9L HF, pending rehab -06/21: at 13-15HF, follow sputum culture, started Levaquin; consulted ID Dr. Ruggiero -06/22: at 11L HF, pending respiratory culture -06/23: at 12-15L HF, continued on Levaquin, started steroid per ID recommendation -06/24 - Follow up Legionella Ag; add ANCA, MARSHA, LDH Ground glass seen on CT - per my own read this does not have the appearance of Pneumonia though atypical infections are possible. Patient denies any history of immunocompromising infections, URI symptoms, sick contacts. Ddx includes pneumonitis > fluid overload > > Legionella, Chlamydia, Bordatella, Viruses. He does have significant exposure to smoke over his lifetime // Leukocytosis, afebrile likely reactive to hypoxia. Procal normal Levofloxacin DCd per ID recommendations Acute decompensated diastolic heart failure- POA Aortic regurgitation, moderate to severe Hx CABG 06/19: TTE shows EMMETT 1.28cmsq, moderate to severe aortic insufficiency, LVEF 55- 60%, RVSP 35mmHg; pBNP 2690; continue home aspirin, statin Case discussed with his processing clerk Dr. Nieto, recommends medical management Continue GDMT as tolerated: Lasix 20 mg IV b.i.d. daily, carvedilol 3.125 daily, Jardiance 10 mg daily Hyperglycemia 2/2 steroid, improved Lantus, supplemental Continue monitoring Bipolar disorder Hypothyroidism TSH and free T4 are unremarkable Code status: Full Code DVT/VTE Prophylaxis: heparin Nutrition: Heart healthy diet PT: Yes Prognosis: Guarded Disposition: Continue care in PCU. Possible discharge to [facility] tomorrow Luis Terry MD Internal Medicine Resident PGY-1 Date of Service: June 25, 2024 Billing Provider: BOYD KWONG MD, LEONARDO LUIS June 25, 2024 15:45
[2024-06-26] VITALS (10 sets, daily range): BP systolic 132–149; BP diastolic 46–52; PULSE 75–82; RESP 15–20; TEMP 97.2–98.1; O2SAT 90–97
[2024-06-26 05:48] LABS: BASOPHILS % (AUTO) 0.1 % (0-1); EOSINOPHILS % (AUTO) 0.1 % (0-6); HEMATOCRIT 39.1 % (42.0-52.0); HEMOGLOBIN 13.1 g/dl (14.0-17.9); LYMPHOCYTES # (AUTO) 0.6 X10'3 (1.1-4.8); LYMPHOCYTES % (AUTO) 4.2 % (21-51); MEAN CORPUSCULAR HEMOGLOBIN 30.3 PG (27.0-31.0); MEAN CORPUSCULAR HGB CONC 33.4 g/dL (33.0-36.5); MEAN CORPUSCULAR VOLUME 90.7 FL (78-98); MEAN PLATELET VOLUME 7.2 FL (7.4-10.4); MONOCYTES # (AUTO) 0.9 X10'3 (0-0.9); MONOCYTES % (AUTO) 6.1 % (2-12); NEUTROPHILS # (AUTO) 13.5 X10'3 (1.8-7.7); NEUTROPHILS % (AUTO) 89.5 % (42-75); PLATELET COUNT 455 X10'3 (140-440); RED BLOOD COUNT 4.32 X10'6 (4.70-6.10); RED CELL DISTRIBUTION WIDTH 12.9 % (11.5-14.5); WHITE BLOOD COUNT 15.1 X10'3 (4.5-11.0)
[2024-06-26 05:55] LABS: ALANINE AMINOTRANSFERASE 51 U/L (12-78); ALBUMIN 2.3 G/DL (3.4-5.0); ALBUMIN/GLOBULIN RATIO 0.6 (1.1-1.5); ALKALINE PHOSPHATASE 56 IU/L (46-116); ANION GAP 8 (8-16); ASPARTATE AMINO TRANSFERASE 30 U/L (10-37); BILIRUBIN,TOTAL 0.4 MG/DL (0.1-1.0); BLOOD UREA NITROGEN 42 MG/DL (7-18); BUN/CREATININE RATIO 39.6 (10.0-20.0); CHLORIDE 105 MMOL/L (99-107); CREATININE 1.06 MG/DL (0.60-1.10); GLUCOSE 192 MG/DL (70-104); POTASSIUM 4.5 MMOL/L (3.5-5.1); SODIUM 138 MMOL/L (135-145); TOTAL CARBON DIOXIDE 25.5 MMOL/L (24-32); TOTAL PROTEIN 6.4 G/DL (6.4-8.2); eCRCL 61 ML/MIN; eGFR 68 ML/MIN
[2024-06-26] MEDS: methylPREDNISolone sod succ/PF 40mg inj. IV SCH (08:00)
[2024-06-26] MEDS: ondansetron/PF 4mg/2ml inj IV PRN (12:13)
[2024-06-26 13:30] LABS: ATYPICAL PANCA <1:20 titer (Neg:<1:20); CYTOPLASMIC (C-ANCA) <1:20 titer (Neg:<1:20); PERINUCLEAR (P-ANCA) <1:20 titer (Neg:<1:20)
--- NOTE | 2024-06-26 18:25 | DISCHARGE SUMMARY-Residence ---
Discharge Summary Providers to CC Resident Creating Document: KAREN MEJIA CC: BOYD KWONG MD ~ Discharge Summary Admission Diagnosis: left lung pneumonia, emphysema Hospital Course DATE OF ADMISSION: 06/16/2024 DATE OF DISCHARGE: 06/26/2024 Discharge Diagnosis\\Comment: Community-acquired pneumonia, severe- POA, resolving Acute hypoxic respiratory failure- POA, improved Respiratory alkalosis-POA Acute decompensated diastolic heart failure- POA Aortic regurgitation, moderate to severe Hx of CABG Hyperglycemia 2/2 steroid, improved Bipolar disorder Hypothyroidism Operations\\Procedures: None Consultants: RAMIRO Arriaga Complications: None Condition on DC: Stable for transfer Discharge Summary: Patient was admitted with the following HPI: 78-year-old male, history of ME/CABG, who presents with shortness of breath and respiratory distress. Per EMS, the patient arrives from home. He was found to have oxygen saturations were on 70%, with respiratory distress. He was placed on oxygen with partial improvement. As per ER provider's note" The patient tells me he has had a cough for about the last 4 5 days. He has been having chest pain for the past day or 2. He reports the pain is in his central chest. It does not seem pleuritic. He was not having a productive cough. No definite fevers. No abdominal pain, nausea vomiting or diarrhea. He does not know if his legs are swollen." . When I evaluated the patient patient denied any chest pain to me he was on 7 L oxygen saturating 96%. On exam he has very coarse br eath sounds all over his lungs. X-ray showed significant consolidation. CT chest done today which showed left upper and lower lobe pneumonia, emphysema no central pulmonary embolism. Other pulmonary branches are not evaluated due to suboptimal enhancement. Mediastinal lymphadenopathy. Hospitalist services contacted for admission and further management. Hospital course: Patient was admitted with diagnosis of left upper and lower lobe pneumonia and emphysema, he was started on IV antibiotics, steroids and breathing treatments. ABG and echocardiogram were ordered. By hospital day 3, oxygen requirement had increased up to 15 L from 7 L on admission. Diagnosis of acute on chronic heart failure with preserved ejection fraction was added and customer marketing assistant Dr. Scott was consulted who recommended GDMT. Patient oxygen requirement slowly decreased and patient was continued on IV antibiotics and breathing treatments, steroids were discontinued. On hospital day 8, ID was consulted due to ground-glass seen on CT scan who recommended Legionella Ag, ANCA, MARSHA, in continue antibiotics which had been switched to Levaquin. Steroids were also restarted. Patient continued to have slow recovery, with improvement of breathing and decreased oxygen requ irement down to 6 L. Patient did experience severe deconditioning during hospital course. Today, patient will be transferred to rehab facility for further physical therapy. Patient completed antibiotic course and will complete prednisone taper. Patient otherwise remained hemodynamically stable during hospital course. Laboratory Tests Test 06/25/24 05:01 06/26/24 04:57 White Blood Count 15.3 X10'3 15.1 X10'3 Red Blood Count 4.14 X10'6 4.32 X10'6 Hemoglobin 12.5 g/dl 13.1 g/dl Hematocrit 37.6 % 39.1 % Mean Corpuscular Volume 90.7 FL 90.7 FL Mean Corpuscular Hemoglobin 30.1 PG 30.3 PG Mean Corpuscular Hemoglobin Concent 33.2 g/dL 33.4 g/dL Red Cell Distribution Width 12.4 % 12.9 % Platelet Count 505 X10'3 455 X10'3 Mean Platelet Volume 7.3 FL 7.2 FL Neutrophils (%) (Auto) 90.0 % 89.5 % Lymphocytes (%) (Auto) 4.5 % 4.2 % Monocytes (%) (Auto) 5.4 % 6.1 % Eosinophils (%) (Auto) 0 % 0.1 % Basophils (%) (Auto) 0.1 % 0.1 % Neutrophils # (Auto) 13.8 X10'3 13.5 X10'3 Lymphocytes # (Auto) 0.7 X10'3 0.6 X10'3 Monocytes # (Auto) 0.8 X10'3 0.9 X10'3 Eosinophils # (Auto) 0.0 X10'3 0.0 X10'3 Basophils # (Auto) 0.0 X10'3 0.0 X10'3 CBC Comment Sodium Level 137 MMOL/L 138 MMOL/L Potassium Level 4.3 MMOL/L 4.5 MMOL/L Chloride Level 104 MMOL/L 105 MMOL/L Carbon Dioxide Level 25.3 MMOL/L 25.5 MMOL/L Anion Gap 8 8 Blood Urea Nitrogen 45 MG/DL 42 MG/DL Creatinine 1.05 MG/DL 1.06 MG/DL Estimated GFR/1.73 m2 68 ML/MIN 68 ML/MIN BUN/Creatinine Ratio 42.9 39.6 Glucose Level 199 MG/DL 192 MG/DL Calcium Level 9.1 MG/DL 9.0 MG/DL Total Bilirubin 0.3 MG/DL 0.4 MG/DL Aspartate Amino Transf (AST/SGOT) 28 U/L 30 U/L Alanine Aminotransferase (ALT/SGPT) 49 U/L 51 U/L Alkaline Phosphatase 52 IU/L 56 IU/L Total Protein 6.4 G/DL 6.4 G/DL Albumin 2.3 G/DL 2.3 G/DL Globulin 4.1 G/DL 4.1 G/DL Albumin/Globulin Ratio 0.6 0.6 Chemistry Comments Imaging: Chest x-ray on admission: Patchy airspace disease of the left lung field. Cardiomegaly with mild congestion. Chest/thorax CTA on admission: 1. No central pulmonary embolism. The other pulmonary branches are not evaluated due to suboptimal enhancement. 2. Left upper and lower lobe pneumonia. 3. Emphysema. 4. Mediastinal lymphadenopathy. Echocardiogram: Normal LV size and function. Mild concentric hypertrophy. LVEF is 55-60%. RV is mildly dilated in size with normal function. RVSP is estimated at 35 mmHg. Left atrium is mildly dilated. Probably trileaflet AV is difficult to visualize, but appears moderately sclerotic and calcified with moderate stenosis. EMMETT is measured at 1.28 cmsq. Peak / mean gradients of 61 / 33 mmHG. Peak velocity is measured at 3.89 m/sec. Moderate to evere insufficiency. Mild MV annular calcification without stenosis. Mild regurgitation. TV appears structurally normal with trace regurgitation. Normal PV without stenosis, physiologic insufficiency. Aortic root is dilated. Ascending aorta is dilated. Normal pericardium. No effusion. Current Medications Medications (Trade) Dose Ordered Sig/Raisa Route PRN Reason Start Time Stop Time Status Last Admin Dose Admin Ceftriaxone Sodium/Dextrose 50 ml @ 100 mls/hr ONCE ONCE IV 06/16/24 05:30 06/16/24 05:59 DC 06/16/24 05:43 100 MLS/HR Azithromycin 250 ml @ 250 mls/hr ONCE ONCE IV 06/16/24 09:05 06/16/24 10:04 DC 06/16/24 09:28 250 MLS/HR Methylprednisolone Sodium Succinate (SoluMEDROL 125mg inj) 125 mg ONCE ONCE IV 06/16/24 09:05 06/16/24 09:07 DC 06/16/24 09:27 125 MG Acetaminophen (Tylenol tablet) 650 mg Q6H PRN PO MILD PAIN (1-3 ON 0-10 SCALE) 06/16/24 11:50 06/26/24 15:57 DC 06/22/24 19:06 650 MG Acetaminophen/ Hydrocodone Bitart ([place] 5/325mg tablet) 1 tab Q8H PRN PO moderate or severe pain 4-10 06/16/24 11:50 06/26/24 15:57 DC 06/23/24 00:07 1 TAB Ondansetron HCl (Zofran 4mg/2ml vial) 4 mg Q6H PRN IV nausea/vomiting 06/16/24 11:50 06/26/24 15:57 DC 06/26/24 12:13 4 MG Heparin Sodium (Porcine) (heparin, porcine 5000 unit/ ml 1ml vial) 5,000 unit Q12H SQ 06/16/24 20:00 06/22/24 11:35 DC 06/22/24 08:52 5,000 UNIT Albuterol (Proventil 2.5 MG/3ML nebule) 2.5 mg Q4H NEB 06/16/24 12:00 06/26/24 15:57 DC 06/26/24 07:12 2.5 MG Methylprednisolone Sodium Succinate (Solu-Medrol 40mg inj.) 60 mg BID IV 06/16/24 20:00 06/18/24 08:48 DC 06/17/24 20:44 60 MG Ceftriaxone Sodium/Dextrose 50 ml @ 100 mls/hr DAILY IV 06/17/24 08:00 06/21/24 17:13 DC 06/21/24 08:31 100 MLS/HR Azithromycin 250 ml @ 250 mls/hr Q24H IV 06/17/24 08:00 06/21/24 17:13 DC 06/21/24 08:31 250 MLS/HR Bupropion HCl (Wellbutrin SR tablet) 150 mg DAILY PO 06/16/24 17:31 06/26/24 15:57 DC 06/26/24 07:22 150 MG Fluoxetine HCl (Prozac capsule) 80 mg QAM PO 06/17/24 08:00 06/26/24 15:57 DC 06/26/24 07:21 80 MG Gabapentin (Neurontin capsule) 600 mg DAILY PO 06/17/24 08:00 06/18/24 08:48 DC 06/17/24 08:22 600 MG Gabapentin (Neurontin capsule) 900 mg HS PO 06/16/24 21:00 06/17/24 10:31 DC 06/16/24 20:25 900 MG Levothyroxine Sodium (Synthroid tablet) 175 mcg DAILY@0700 PO 06/17/24 07:00 06/26/24 15:57 DC 06/26/24 07:22 175 MCG Quetiapine Fumarate (Seroquel) 200 mg HS PO 06/16/24 21:00 06/26/24 15:57 DC 06/25/24 20:29 200 MG Risperidone (Risperdal tablet) 1 mg HS PO 06/16/24 21:00 06/26/24 15:57 DC 06/25/24 20:28 1 MG Tamsulosin HCl (Flomax capsule) 0.4 mg BID PO 06/16/24 20:00 06/26/24 15:57 DC 06/26/24 07:21 0.4 MG Aspirin (Ecotrin tablet) 1 tab DAILY PO 06/17/24 08:00 06/26/24 15:57 DC 06/26/24 07:21 1 TAB Atorvastatin Calcium (Lipitor tablet) 40 mg HS PO 06/16/24 21:00 06/26/24 15:57 DC 06/25/24 20:29 40 MG Pantoprazole Sodium (Protonix) 40 mg BKF PO 06/17/24 07:30 06/26/24 15:57 DC 06/26/24 07:21 40 MG Magnesium Oxide (mag-Ox 400mg tablet) 400 mg DAILY PO 06/16/24 17:34 06/26/24 15:57 DC 06/26/24 07:21 400 MG Finasteride (Proscar tablet) 5 mg DAILY PO 06/16/24 17:55 06/26/24 15:57 DC 06/26/24 07:22 5 MG Alprazolam (Xanax tablet) 0.5 mg Q8H ONCE PO 06/16/24 20:00 06/16/24 20:12 DC 06/16/24 20:25 0.5 MG Alprazolam (Xanax tablet) 0.5 mg ONCE ONCE PO 06/17/24 10:20 06/17/24 10:21 DC 06/17/24 10:42 0.5 MG Alprazolam (Xanax tablet) 0.5 mg Q12H PRN PO anxiety 06/17/24 10:30 06/18/24 10:44 DC 06/18/24 09:31 0.5 MG Hydralazine HCl (Apresoline inj.) 10 mg Q6H PRN IV SBP>160 06/17/24 20:15 06/26/24 15:57 DC 06/17/24 21:59 10 MG Alprazolam (Xanax tablet) 1.5 mg ONCE PRN PO anxiety 06/17/24 23:00 06/18/24 10:44 DC 06/17/24 23:20 1.5 MG Gabapentin (Neurontin capsule) 300 mg DAILY PO 06/19/24 08:00 06/26/24 15:57 DC 06/26/24 07:21 300 MG Methylprednisolone Sodium Succinate (Solu-Medrol 40mg inj.) 40 mg BID IV 06/18/24 20:00 06/19/24 16:16 DC 06/19/24 07:29 40 MG Alprazolam (Xanax tablet) 2 mg HS PO 06/18/24 21:00 06/26/24 15:57 DC 06/25/24 20:29 2 MG Gabapentin (Neurontin capsule) 300 mg ONCE ONCE PO 06/18/24 20:00 06/18/24 20:01 DC 06/18/24 20:49 300 MG Acetazolamide Sodium (Diamox IV) 500 mg ONCE ONCE IV 06/19/24 08:10 06/19/24 08:13 DC 06/19/24 09:34 500 MG Acetazolamide Sodium (Diamox IV) 250 mg DAILY IV 06/20/24 08:00 06/21/24 07:27 DC 06/20/24 08:56 250 MG Gabapentin (Neurontin capsule) 600 mg HS PO 06/19/24 21:00 06/26/24 15:57 DC 06/25/24 20:30 600 MG Carvedilol (Coreg tablet) 3.125 mg BID PO 06/19/24 20:00 06/26/24 15:57 DC 06/26/24 07:21 3.125 MG Empaglifozin (JARDIANCE 10mg tablet) 10 mg DAILY PO 06/20/24 08:00 06/26/24 15:57 DC 06/26/24 07:20 10 MG Empaglifozin (JARDIANCE 10mg tablet) 10 mg ONCE ONCE PO 06/19/24 16:20 06/19/24 16:24 DC 06/19/24 16:51 10 MG Insulin Glargine (Lantus inj) 5 unit ONCE ONCE SQ 06/20/24 09:30 06/20/24 09:31 DC 06/20/24 09:59 5 UNIT Lactose (Ensure Enlive - 237ML) 1 can WL PO 06/20/24 12:30 06/26/24 15:57 DC 06/26/24 12:56 1 CAN Insulin Glargine (Lantus inj) 10 unit DAILY SQ 06/21/24 08:00 06/21/24 12:32 DC 06/21/24 08:40 10 UNIT Insulin Glargine (Lantus inj) 5 unit ONCE ONCE SQ 06/20/24 13:40 06/20/24 13:47 DC 06/20/24 15:18 5 UNIT Acetazolamide Sodium (Diamox IV) 250 mg Q12H IV 06/21/24 08:00 06/26/24 15:57 DC 06/26/24 07:23 250 MG Furosemide (Lasix inj) 20 mg DAILY IV 06/21/24 08:00 06/26/24 15:57 DC 06/26/24 07:22 20 MG Bisacodyl (Dulcolax suppository) 10 mg DAILY PRN RC constipation 06/21/24 10:40 06/26/24 15:57 DC 06/21/24 10:48 10 MG Docusate Sodium (Colace capsule) 100 mg BID PO 06/21/24 10:40 06/26/24 15:57 DC 06/26/24 07:21 100 MG Magnesium Hydroxide (milk of magnesia oral suspension) 30 ml DAILY PRN PO constipation 06/21/24 10:40 06/26/24 15:57 DC 06/21/24 10:48 30 ML Insulin Glargine (Lantus inj) 7 unit DAILY SQ 06/22/24 08:00 06/26/24 15:57 DC 06/26/24 07:39 7 UNIT Levofloxacin 150 ml @ 100 mls/hr Q24H IV 06/22/24 08:00 06/25/24 15:40 DC 06/25/24 08:00 100 MLS/HR Levofloxacin 150 ml @ 100 mls/hr ONCE STAT IV 06/21/24 17:12 06/21/24 18:41 DC 06/21/24 17:28 100 MLS/HR Lactobacillus Rhamnosus (Culturelle capsule) 10,000 mmu DAILY PO 06/21/24 20:00 06/26/24 15:57 DC 06/26/24 07:20 10,000 MMU Heparin Sodium (Porcine) (heparin, porcine 5000 unit/ ml 1ml vial) 5,000 unit Q8H SQ 06/22/24 16:00 06/26/24 15:57 DC 06/26/24 07:24 5,000 UNIT Methylprednisolone Sodium Succinate (Solu-Medrol 40mg inj.) 62.5 mg Q12H IV 06/23/24 10:47 06/26/24 07:37 DC 06/26/24 07:16 62.5 MG Discharge physical exam: Vital Signs Date Time Temp Pulse Resp B/P (MAP) Pulse Ox O2 Delivery O2 Flow Rate FiO2 06/26/24 15:28 97.8 82 16 149/46 (80) 97 Nasal Cannula 5.0 06/26/24 07:16 48 General: awake, alert oriented to place, time, and person HEENT: High-flow nasal cannula in place. No pallor present, no icterus, moist mucous membranes Neck: No masses and tenderness Resp: Unlabored. Improved crackles in both lung bases. No rhonchi or wheezing Heart: Regular Rate and rhythm, normal S1 and S2 without murmur, rub or gallop Abdomen: Soft and non tender no organomegaly, no guarding and rigidity, bowel sounds present Neuro: No focal weakness in the upper and lower limb muscles, power of the muscles 4/5 bilateral upper and lower muscles, knee reflex present bilaterally. Cranial nerves intact Extremities: No cyanosis,clubbing or edema Skin: Warm and Dry. No lesions Patient will be transferred to rehab today *Problems/Diagnosis: (1) SOB (shortness of breath) Status: Acute (2) Community acquired pneumonia Status: Acute (3) Acute hypoxic respiratory failure Status: Acute Total Time Spent on D/C: > 30 Minutes Date of Service: June 26, 2024 Billing Provider: BOYD KWONG MD, LEONARDO LUIS June 26, 2024 18:24
== END 2024-06-26 15:57 | DRG 193 ==
LOC: ER 04:55 → PCU 3S 11:54
PROVIDERS: ADMIT Internal Medicine; ATTEND Internal Medicine
PROC: 5A0935A Assistance with Respiratory Ventilation, Less than 24 Consecutive Hours, High Flow/Velocity Cannula (ICD-10-PCS; principal; 2024-06-17)
PROC: 5A0955A Assistance with Respiratory Ventilation, Greater than 96 Consecutive Hours, High Flow/Velocity Cannula (ICD-10-PCS; 2024-06-18)
PROC: 5A0935A Assistance with Respiratory Ventilation, Less than 24 Consecutive Hours, High Flow/Velocity Cannula (ICD-10-PCS; 2024-06-24)
PROC: 5A0935A Assistance with Respiratory Ventilation, Less than 24 Consecutive Hours, High Flow/Velocity Cannula (ICD-10-PCS; 2024-06-25)
PROC: 5A0935A Assistance with Respiratory Ventilation, Less than 24 Consecutive Hours, High Flow/Velocity Cannula (ICD-10-PCS; 2024-06-26)
DX: J18.9 Pneumonia, unspecified organism (principal); I50.33 Acute on chronic diastolic (congestive) heart failure; J96.01 Acute respiratory failure with hypoxia; E87.3 Alkalosis; R65.10 Systemic inflammatory response syndrome (SIRS) of non-infectious origin without acute organ dysfunction; I11.0 Hypertensive heart disease with heart failure; Z20.822 Contact with and (suspected) exposure to COVID-19; I25.10 Atherosclerotic heart disease of native coronary artery without angina pectoris; J43.9 Emphysema, unspecified; F17.200 Nicotine dependence, unspecified, uncomplicated; I35.0 Nonrheumatic aortic (valve) stenosis; F31.9 Bipolar disorder, unspecified; E03.9 Hypothyroidism, unspecified; E11.65 Type 2 diabetes mellitus with hyperglycemia; T38.0X5A Adverse effect of glucocorticoids and synthetic analogues, initial encounter; Y92.89 Other specified places as the place of occurrence of the external cause; Z79.84 Long term (current) use of oral hypoglycemic drugs; I25.2 Old myocardial infarction; Z95.1 Presence of aortocoronary bypass graft; Z79.82 Long term (current) use of aspirin; Z79.899 Other long term (current) drug therapy
CPT/HCPCS: 36415; 36600; 71045; 71275; 80053; 80061; 81003; 82728; 82803; 82948; 83036; 83605; 83615; 83880; 84145; 84439; 84443; 84484; 85018; 85025; 86038; 86256; 87040; 87070; 87081; 87502; 87503; 87811; 93005; 93306; 94640; 94664; 94668; 94760; 96365; 96367; 96375; 97110; 97161; 97530; 99291; A4615; A4620; A6213; A6590; G0378; J0360; J0456; J0696; J1120; J1644; J1815; J1938; J1956; J2405; J2919; J7040; Q9967